=== PATIENT | male | born 1955 | race Caucasian/White ===

== ENCOUNTER → 2018-04-26 | Outpatient (CLI) | payer BC ==
[~2018-04-26] MED LIST: PRILOSEC 20 MG20 MG PO
--- NOTE | 2018-04-27 16:35 | CON ---
[address] [address] CONSULTATION Name: CHANELLE DOWLING Rebecca Room: [facility]#: [id number] Admission: 04/26/18 Attend Phys: Anand Dawkins Discharge: Date of : 53 Report #: [id number] THIS REPORT FOR: //name// CC: RANDELL WALKER DO Randell Walker DATE OF SERVICE: 04/26/2018 PULMONARY FUNCTION STUDY ATTENDING PHYSICIAN: Dr. Randell Walker. A 62-year-old male with dyspnea. Spirometry demonstrates mild obstructive defect. There is no significant improvement after bronchodilator response. Best spirometry shows an FEV1 of 3.45 with an FVC of 5.21, ratio 66%. FEV1 is 106% of predicted. Forced vital capacity is 120% of predicted. DPY80-03 is slightly decreased at 71% of predicted with some mild improvement. Lung volumes performed by plethysmography were within normal limits. Vital capacity is upper limits of normal 120% of predicted. Total lung capacity is normal at 88% of predicted. Diffusion is within normal limits at 90% of predicted. IMPRESSION: Abnormalities suggest mild obstructive defect with normal, DLCO and normal lung volumes. <ELECTRONICALLY SIGNED> By: Gideon Solano MD 04/27/18 1635 1433 1725Anthocecilio Llamas MD /elpidio
== END ==
LOC: M.PUL 10:17
DX: R06.00 Dyspnea, unspecified (principal); E66.3 Overweight; F17.210 Nicotine dependence, cigarettes, uncomplicated; Z98.890 Other specified postprocedural states; Z68.29 Body mass index [BMI] 29.0-29.9, adult; Z79.899 Other long term (current) drug therapy

== ENCOUNTER → 2018-05-17 | Outpatient (CLI) | payer BC ==
--- NOTE | 2018-05-17 16:30 | 2DMMODE ---
[place] [address] 2 D/M-MODE ECHOCARDIOGRAM Name: CHANELLE DOWLING Room: [facility]#: [id number] Admission: 05/17/18 Attend Phys: Chelsie Luna Discharge: Date of : 53 Date of Service: 05/17/18 1630 Report #: [id number] THIS REPORT FOR: //name// APPROVED REPORT Study performed: 05/17/2018 13:20:05 EXAM: Comprehensive 2D, Doppler, and color-flow Echocardiogram Patient Location: Out-Patient BSA: 1.92 HR: 63 bpm BP: 118/68 mmHg Other Information Study Quality: Good Indications Chest Pain 2D Dimensions IVSd: 9.10 (7-11mm) LVOT Diam: 20.76 (18-24mm) LVDd: 45.88 mm PWd: 9.98 (7-11mm) Ascending Ao: 30.87 (22-36mm) LVDs: 26.13 (25-40mm) Aortic Root: 27.81 mm Aortic Valve AoV Peak Abdon.: 1.52 m/s AO Peak Gr.: 9.19 mmHg LVOT Max P.57 mmHg LVOT Max V: 0.80 m/s AI [place]: 1.45 m/s2 AI PHT: 869.89 ms Mitral Valve E/A Ratio: 0.82 MV Decel. Time: 336.97 ms MV E Max Abdon.: 0.60 m/s MV PHT: 97.72 ms MVA (PHT): 2.25 cm2 TDI E/Lateral E': 6.67 E/Medial E': 8.57 Medial E' Abdon.: 0.07 m/s Lateral E' Abdon.: 0.09 m/[place] [address] 2 D/M-MODE ECHOCARDIOGRAM Name: CHANELLE DOWLING Room: [facility]#: [id number] Admission: 05/17/18 Attend Phys: Chelsie Luna Discharge: Date of : 53 Date of Service: 05/17/18 1630 Report #: [id number] Pulmonary Valve PV Peak Abdon.: 0.44 m/s PV Peak Gr.: 0.77 mmHg Tricuspid Valve RAP Estimate: 5.00 mmHg TR Peak Gr.: 15.04 mmHg RVSP: 20.04 mmHg PA Pressure: 20.04 mmHg Left Ventricle The left ventricle is normal size. There is normal LV segmental wall motion. There is normal left ventricular wall thickness. Left ventricular systolic function is mildly decreased. LVEF is 45%. Grade I - abnormal relaxation pattern. Right Ventricle Right ventricle is borderline dilated. The right ventricular systolic function is normal. Atria Left atrium is mildly dilated. Right atrium is mildly dilated. Aortic Valve Mild aortic valve sclerosis. Moderate aortic regurgitation. There is no aortic valvular stenosis. Mitral Valve The mitral valve is normal in structure. There is no mitral valve regurgitation noted. No evidence of mitral valve stenosis. Tricuspid Valve The tricuspid valve is normal in structure. Mild tricuspid regurgitation. Pulmonic Valve The pulmonary valve is normal in structure. There is no pulmonic valvular regurgitation. Great Vessels The aortic root is normal in size. IVC is normal in size and collapses >50% with inspiration. Pericardium There is no [place] [address] 2 D/M-MODE ECHOCARDIOGRAM Name: CHANELLE DOWLING Rebecca Room: [facility]#: [id number] Admission: 05/17/18 Attend Phys: Chelsie Luna Discharge: Date of : 53 Date of Service: 05/17/18 1630 Report #: [id number] <Conclusion> The left ventricle is normal size. There is normal left ventricular wall thickness. Left ventricular systolic function is mildly decreased. LVEF is 45%. Grade I - abnormal relaxation pattern. Right ventricle is borderline dilated. Left atrium is mildly dilated. Right atrium is mildly dilated. Mild aortic valve sclerosis. Moderate aortic regurgitation. There is no aortic valvular stenosis. The mitral valve is normal in structure. There is no mitral valve regurgitation noted. The tricuspid valve is normal in structure. Mild tricuspid regurgitation. IVC is normal in size and collapses >50% with inspiration. There is normal LV segmental wall motion. <ELECTRONICALLY SIGNED> By: Suleman Miller MD, FACC 05/17/18 1630 163 163 Suleman Miller MD, FACC /INF
== END ==
LOC: M.CRD 12:46
DX: I08.2 Rheumatic disorders of both aortic and tricuspid valves (principal)

== ENCOUNTER → 2018-09-01 | Outpatient (CLI) | payer OTHER | LOC: M.ULTRA 11:30 | DX: I65.23 Occlusion and stenosis of bilateral carotid arteries (principal) ==

== ENCOUNTER 2018-10-12 17:03 | Inpatient (IN) | payer OTHER ==
[~2018-10-12] VITALS: Ht 175.3 cm; Wt 80.3 kg
--- NOTE | ~2018-10-12 | CARD ---
[facility] [address] [place] [address] CARDIAC CATH REPORT Name: CHANELLE DOWLING Room: [address] IN .R.#: [id number] Admission: 10/12/18 Attend Phys: Tony Kendrick Discharge: Date of : 53 Report #: [id number] THIS REPORT FOR: //name// CC: Chelsie Sparks PROCEDURE: Inpatient transesophageal echocardiogram and cardioversion. REQUESTING PHYSICIAN: Blanka Taylor. INDICATION: Atrial fibrillation and CHF. CONSENT: The risks and benefits of the procedure described to the patient in lay terms. The patient elects to proceed. After informed consent, the patient was taken to the holding area and a conscious sedation was administered in the usual protocol. Local anesthesia with Hurricaine spray was utilized. A bite block was inserted. IV Versed and fentanyl were utilized for dosing for conscious sedation; please see record. Heart rate, oxygenation, blood pressure, respiratory rate and saturation were all monitored per nursing, per protocol. After the patient was adequately sedated, a lubricated transesophageal probe was advanced and images were obtained. There was no evidence of intracardiac thrombus and the patient was successfully cardioverted with 150 joules, biphasic from atrial flutter to sinus rhythm. IMPRESSION: 1. Successful TAHMINA-guided cardioversion. 2. Cardiomyopathy. Recommend outpatient cardiac stress testing or cardiac catheterization. By: [id number] [id number] Skinner MD, FACC /nt
[2018-10-12 17:11] VITALS: BP 130/83
[2018-10-12] MEDS ORDERED: OMEPRAZOLE40 MG PO (17:15)
[2018-10-12 17:18] LABS: ABSOLUTE EOSINOPHILS 0.1 thou/uL (0.0-0.7); ABSOLUTE LYMPHOCYTES 2.9 thou/uL (0.8-5.3); ABSOLUTE MONOCYTES 0.9 thou/uL (0.0-1.2); ABSOLUTE NEUTROPHILS 3.7 thou/uL (1.6-8.1); BASOPHILS 0.5 %; EOSINOPHILS 1.8 %; HEMOGLOBIN 16.6 gm/dL (14.0-18.0); LYMPHOCYTES 38.4 %; MCHC 33.9 g/dL (28.0-37.0); MCV 94.2 fL (80.0-100.0); MONOCYTES 11.6 %; MPV 7.4 fl. (7.2-11.1); NUCLEATED RBCS 0 /100WBC; PLATELET COUNT* 225 thou/uL (150-400); POLYS 47.7 %; RDW-CV 13.1 % (10.5-14.5); WBC 7.7 thou/uL (4.0-11.0)
[2018-10-12 17:30] LABS: ANION GAP 9 mmol/L (7-16); BUN 23 mg/dL (7-18); CALCIUM 9.5 mg/dL (8.5-10.1); CHLORIDE 108 mmol/L (98-107); CO2 25 mmol/L (21-32); CREATININE 1.1 mg/dL (0.6-1.3); GLUCOSE 101 mg/dL (70-99); POTASSIUM 4.4 mmol/L (3.5-5.1); SODIUM 142 mmol/L (136-145)
[2018-10-12 17:31] LABS: APTT 31.5 Seconds (25.0-31.3); PROTIME 9.9 Seconds (9.20-11.50)
[2018-10-12 17:43] LABS: ALBUMIN 4.1 g/dL (3.4-5.0); ALKALINE PHOSPHATASE 80 U/L (46-116); CK-MB MASS 2.1 ng/mL (<0.5-3.6); LIPASE 188 U/L (73-393); MAGNESIUM 2.4 mg/dL (1.8-2.4); NT-PRO BRAIN NAT PEPTIDE 1114 pg/mL (<300); SGOT 25 U/L (15-37); SGPT 41 U/L (30-65); TOTAL BILIRUBIN 0.8 mg/dL (<0.1-1.0); TOTAL PROTEIN 7.4 g/dL (6.4-8.2); TROPONIN-I LEVEL <0.06 ng/mL (<0.06)
--- NOTE | 2018-10-12 19:50 | NUR ---
OK TO DRINK AAND TAKE HIS PERSCRIPTION OF OMEPRAZOLE PER
[2018-10-12 20:00] VITALS: BP 132/64
[2018-10-12 20:23] VITALS: BP 115/73
[2018-10-12 20:32] LABS: CHOLESTEROL 105 mg/dL (<200); HDL CHOLESTEROL 52 mg/dL (>40); LDL CHOLESTEROL 46 mg/dL (<100); TRIGLYCERIDE 38 mg/dL (<150); VLDL 8 mg/dL (<40)
[2018-10-12 20:36] LABS: SERUM ASSESSMENT Clear
[2018-10-12 23:52] VITALS: BP 104/66
[2018-10-13] VITALS (14 sets, daily range): BP systolic 101–128; BP diastolic 61–85
--- NOTE | 2018-10-13 06:56 | NUR ---
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 PT C/O CHEST PAIN X1 THIS SHIFT. STATED PAIN HAD GONE AWAY ON IT'S OWN. EDUCATED PT ON IMPORTANCE OF LETTING NURSING KNOW IMMEDIATELY NEXT TIME. VVS. HOURLY ROUNDING COMPLETED. CALL LIGHT WITHIN REACH.NPO FOR CARDIOLOGY CONSULT.
--- NOTE | 2018-10-13 07:15 | NUR ---
ASSUMED CARE OF PT ASSESSED AND DOCUMENTED. PT IS ON CARDIAC MONITER TRACING AFLUTTER HR 63. PT IS A&O WITH NO C/O PAIN. VSS WNL. PT IS AFEBRILE AND ON ROOM AIR. HE IS NPO FOR CARDIO. WM.
--- NOTE | 2018-10-13 11:34 | EKG ---
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: : 1955 Requested By: Wm Lamar Order Number: [id number] MD: Jesse Skinner Measurements Intervals [place] Rate: 81 P: [place]: QRS: -53 QRSD: 150 T: 72 QT: 429 QTc: 498 Interpretive Statements Atrial flutter with predominant 3:1 AV block RBBB and LAFB Left ventricular hypertrophy Inferior infarct, acute Anterior Q waves, possibly due to LVH Compared to ECG 08/15/2016 10:39:46 AV block, advanced (high-grade) now present Left anterior fascicular block now present Left ventricular hypertrophy now present Myocardial infarct finding now present Q waves now present Sinus rhythm no longer present Electronically Signed On 6-6-2019 11:34:43 CDT by Jesse Skinner [email or web address] <ELECTRONICALLY SIGNED> By: Jesse Skinner MD, [facility] 10/13/18 1134 1707 1707 Jesse Skinner MD, [facility] /EPI
--- NOTE | 2018-10-13 11:35 | EKG ---
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 : 1955 Requested By: Wm Lamar Order Number: [id number] MD: Jesse Skinner Measurements Intervals [place] Rate: 68 P: [place]: QRS: -47 QRSD: 152 T: 31 QT: 442 QTc: 471 Interpretive Statements Atrial flutter RBBB and LAFB Left ventricular hypertrophy Compared to ECG 08/15/2016 10:39:46 Left anterior fascicular block now present Left ventricular hypertrophy now present Sinus rhythm no longer present Electronically Signed On 10-13-2018 11:34:55 CDT by Jesse Skinner [email or web address] <ELECTRONICALLY SIGNED> By: Jesse Skinner MD, FAC 10/13/18 1134 175 175 Jesse Skinner MD, FAC /EPI
--- NOTE | 2018-10-13 13:43 | NUR ---
Pt is A&O. Resides at home with his . Active and independent. No DME. No hx of HH or SNF. CM provided Pt with an [place] copay card. Goal is home at ut. Following for disposition
--- NOTE | 2018-10-13 13:44 | NUR ---
JOHN CALL ED FROM CARDIOLOGY PT CAN EAT BREAKFAST THEN NOTHING AFTER. NO CAFFIENE AND HOLD METOPROLOL.
--- NOTE | 2018-10-13 13:50 | TEE ---
[place] [address] TRANSESOPHAGEAL ECHOCARDIOGRAM Name: NITESHCHANELLE L Room: [address]#: [id number] Admission: 10/12/18 Attend Phys: Melanie Sparks Discharge: Date of : 53 Date of Service: 10/13/18 1349 Report #: [id number] THIS REPORT FOR: //name// APPROVED REPORT Study performed: 10/13/2018 12:15:27 EXAM: Transesophageal Echocardiogram Patient Location: In-Patient Room #: 219 Status: routine BSA: 1.96 HR: 74 bpm BP: 118/85 mmHg Rhythm: Atrial Flutter Other Information Study Quality: Good Indications Atrial flutter Pre Cardioversion Echo Enhancing Agent Indication: Rule out Shunt Agent(s) / Amount(s) Used: Agitated Saline 10 cc Procedure After obtaining informed consent, patient underwent transesophageal echo in the [employer]. Type of Sedation : Conscious Sedation Sedation was administered by Kody Liz RN. Sedation start time: 1224 Case end Time: 1237 Sedation was achieved intravenously with: Versed (5) Fentanyl (50) Transesophageal probe was inserted and advanced into esophagus without difficulty by Jesse Skinner MD, FACC. Echo enhancement indication: R/O Septal defect. Echo enhancement agent administered: Agitated Saline The TAHMINA was performed without complications. Synchronized Cardioversion acheived with 150 Joules after 1 attempt(s). Rhythm following Synchronized Cardioversion: Normal Sinus Rhythm Throughout the procedure, the blood pressure, pulse oximetry, cardiac rhythm, [place] [address] TRANSESOPHAGEAL ECHOCARDIOGRAM Name: CHANELLE DOWLING Room: [address]#: [id number] Admission: 10/12/18 Attend Phys: Melanie Sparks Discharge: Date of : 53 Date of Service: 10/13/18 1349 Report #: [id number] The patient tolerated the procedure without adverse effects. Recovery from conscious sedation was uneventful and vital signs were stable. Left Ventricle The left ventricle is normal size. There is normal LV segmental wall motion. There is global hypokinesis of the left ventricle. There is normal left ventricular wall thickness. Left ventricular systolic function is mildly decreased. No left ventricle thrombus noted on this study. LVEF is 40%. Right Ventricle The right ventricle is normal size. The right ventricular systolic function is normal. Atria No thrombus is visualized in the left atrium or appendage Interatrial septum is intact without evidence of ASD or PFO. The right atrium size is normal. Aortic Valve The aortic valve is normal in structure. Trace aortic regurgitation. There is no aortic valvular stenosis. Mitral Valve The mitral valve is normal in structure. Trace mitral regurgitation. No evidence of mitral valve stenosis. Tricuspid Valve Tricuspid valve is not well visualized. Trace tricuspid regurgitation. Pulmonic Valve Pulmonic valve is not well visualized. There is no pulmonic valvular regurgitation. Great Vessels The aortic root is normal in size. IVC is normal in size and collapses >50% with inspiration. Pericardium There is no pericardial effusion. <Conclusion> LVEF is 40%. There is normal [place] [address] TRANSESOPHAGEAL ECHOCARDIOGRAM Name: DOWLINGCHANELLE Room: [address] IN [facility]#: [id number] Admission: 10/12/18 Attend Phys: Melanie Sparks Discharge: Date of : 53 Date of Service: 10/13/181348 Report #: [id number] There is global hypokinesis of the left ventricle. There is no aortic valvular stenosis. Trace aortic regurgitation. No evidence of mitral valve stenosis. Trace mitral regurgitation. Interatrial septum is intact without evidence of ASD or PFO. No thrombus is visualized in the left atrium or appendage <ELECTRONICALLY SIGNED> By: Jesse Skinner MD, [facility] 10/13/18 1349 134 1349 Jesse Skinner MD, FACC /INF
--- NOTE | 2018-10-13 14:05 | EKG ---
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 10/13/18 1405 1305 1305 Elliott Yanes MD, [facility] /EPI
--- NOTE | 2018-10-13 17:24 | NUR ---
PT HAD CARDIOVERSION TODAY AND IS NOW SR. HE IS TO BE NPO AFTER BREAKDAST FOR STRESS TESTING. FAMILY HAS BEEN AT BEDSIDE. EDUCATION GIVEN ON DEMAND. HOURLY ROUNDING CONT.
[2018-10-14 04:00] VITALS: BP 101/47
--- NOTE | 2018-10-14 06:20 | NUR ---
AT 0345, PT C/O OF FEELING LIKE HE COULDN'T BREATHE. PT VSS, O2 SAT 98% ON RA. LUNGS CLEAR UPON AUSCULTATION. SR ON CARDIAC RHYTHM. PT PLACED ON 2L NC. STAT EKG, NO CHANGES OBSERVED. MORPHINE IVPUSH ADMINSITERED. PT VOICED RELIEF, NO OTHER COMPLAINTS OF SOA AT THIS TIME.
[2018-10-14 08:00] VITALS: BP 122/62
--- NOTE | 2018-10-14 09:02 | EKG ---
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 : 1955 Requested By: Jesse Skinner Order Number: [id number] Reading MD: Elliott Yanes Measurements Intervals [place] Rate: 50 P: 19 NE: 190 QRS: -40 QRSD: 158 T: -13 QT: 471 QTc: 430 Interpretive Statements Sinus bradycardia RBBB and LAFB Left ventricular hypertrophy Compared to ECG 10/13/2018 13:05:18 rate increased Electronically Signed On 10-14-2018 9:02:23 CDT by Elliott Yanes [email or web address] <ELECTRONICALLY SIGNED> By: Elliott Yanes MD, [facility] 10/14/18 0902 0426 0426 Elliott Yanes MD, [facility] /EPI
--- NOTE | 2018-10-14 11:53 | NUR ---
ASSUMED PT CARE AT 0730. AOX4, UP AD ADRIANNE. PT DENIES PAIN. PT FOR STRESS TEST. LIGHT BREAKFAST. TRACING SR, BBB ON MONITOR. ABDOMEN SOFT AND ROUND. LAST BM 10/12/18. IV ACCESS INTACT. VSS, AM ASSESSMENT CHARTED. MEDS GIVEN PER MAR. HOURLY ROUNDING. CALL LIGHT WITHIN REACH. WILL CONTINUE TO MONITOR.
[2018-10-14 12:44] VITALS: BP 113/72
[2018-10-14] MEDS ORDERED: ELIQUIS5 MG PO (15:41)
[2018-10-14] MEDS ORDERED: METOPROLOL SUCC25 M1 PO (15:41)
[2018-10-14] MEDS ORDERED: OMEPRAZOLE40 MG PO (15:42)
[2018-10-14] MEDS ORDERED: PRINIVIL5 MG PO (15:48)
[2018-10-14] MEDS ORDERED: LIPITOR40 MG PO (15:48)
[2018-10-14 15:49] VITALS: BP 113/72
--- NOTE | 2018-10-14 17:04 | NUR ---
DISCUSSED DISCHARGE PLAN WITH THE PT. TELE, IV REMOVED. MEDICATION SCRIPT/PACKET GIVEN. REMINDED TO FOLLOW UP WITH CARDIOLOGY,PCP. ALL BELONGINGS PACKED AND CHECKED. LEFT THE UNIT AMBULATORY AT 1640.
--- NOTE | 2018-10-17 10:16 | H ---
[address] [address] HISTORY AND PHYSICAL Name: NITESHCHANELLE Rebecca Room: [address]#: [id number] Admission: 10/12/18 Attend Phys: Tony Kendrick Discharge: 10/14/18 Date of : 53 Report #: [id number] THIS REPORT FOR: //name// CC: Chelsie Sparks DATE OF SERVICE: 10/12/2018 CHIEF COMPLAINT: Chest pain and shortness of breath. HISTORY OF PRESENT ILLNESS: The patient is a 63-year-old gentleman who does not have any medical problems except hiatal hernia, who presented to us here for recurrent chest pain and shortness of breath. The patient states that he has been short of breath and having chest pain for about 4-6 months now. He has a workup with his primary care physician and in fact had a stress test about 3 months ago, which he thought was negative. His symptoms have progressed for the last couple of weeks. He would have difficulty sleeping because of shortness of breath, developed chest pain when he was actually at rest. He is workaholic per says so sometimes does not really feel the pain until he is resting. He came into the Emergency Department today and was then admitted for further management. PAST MEDICAL HISTORY: Hiatal hernia. No history of hypertension, diabetes, or CAD. He does have history of VSD. PAST SURGICAL HISTORY: Status post surgery, VSD repair. FAMILY HISTORY: Mother having a VSD, but no CAD, no hypertension, no diabetes. SOCIAL HISTORY: The patient is and smokes 2-3 cigarettes per day intermittently. He has been smoking since he was 17, but on and off. He drinks alcohol, 1-5 beers and also had some mild alcohol on and off. No illicit drug use. HOME MEDICATIONS: Omeprazole 40 mg daily. REVIEW OF SYSTEMS: The patient denies any fever and chills. He does have a cough, which was described as on and off. He denies any nausea or vomiting. Does have a chest pain and shortness of breath as described. No diaphoresis, no jaw pain today. No nausea, vomiting, or abdominal pain. A 12-point review of systems is unremarkable as mentioned above. PHYSICAL EXAMINATION: VITAL SIGNS: Temperature is 36.6, heart rate 61, respiratory rate 16, blood pressure is 118/67, 96% on 2 liters nasal cannula. GENERAL: The patient is alert. He is oriented x 3, [place] [address] HISTORY AND PHYSICAL Name: CHANELLE DOWLING Room: [address]#: [id number] Admission: 10/12/18 Attend Phys: Tony Kendrick Discharge: 10/14/18 Date of : 53 Report #: [id number] distress. HEENT: Normocephalic, atraumatic. Nares patent. Clear pharynx. NECK: Supple. No lymphadenopathy. CARDIOVASCULAR: Normal rate, regular rhythm. No murmurs noted. RESPIRATORY: Clear to auscultation bilaterally. No wheeze, no crackles. GASTROINTESTINAL: Abdomen is soft, nontender, nondistended, good positive bowel sounds. No organomegaly. GENITOURINARY: Deferred. MUSCULOSKELETAL: Good strength. NEUROLOGIC: Grossly normal. PSYCHIATRIC: The patient is calm and cooperative. LABORATORY DATA: Reviewed and CBC is unremarkable. Chemistry showed chloride 108, BUN is 23, glucose is 101, otherwise unremarkable. Troponin has been negative. BNP is 1114. Coags unremarkable. D-dimer is 0.26. A CT has been done, which is negative. Chest that showed mild prominence to the heart size, no findings of acute pulmonary disease. EDG: Aflutter, rate controlled IMPRESSION: The patient is a 63-year-old gentleman presented to us here for: 1. Recurrent chest pain with negative outpatient workup. 2. Aflutter, rate controlled 3. Shortness of breath. 4. Known tobaccoism. 5. History of ventricular septal defect, status post repair. 6. Alcohol abuse. PLAN: The patient will be admitted. We will have Cardiology see him given that he already has a negative stress test, but his symptoms have been recurrent. Also noted to have aflutter. We will do an echo in the morning. We will keep him n.p.o. post-midnight. Discussed with the patient regarding code status and he is a full code. <ELECTRONICALLY SIGNED> By: Melanie Sparks MD 10/17/18 1016 14 0053Melanie Sparks MD /nt
--- NOTE | 2018-10-18 18:04 | CARDNUC ---
[place] [address] CARDIAC NUCLEAR IMAGING REPORT Name: NITESHCHANELLE Rebecca Room: [address]#: [id number] Admission: 10/12/18 Attend Phys: Melanie Sparks Discharge: 10/14/18 Date of : 53 Date of Service: 10/18/18 1804 Report #: [id number] THIS REPORT FOR: //name// ADDENDUM APPROVED REPORT Imaging Protocol: Rest Tc-99m/Stress Tc-99m 1 day Study performed: 10/13/2018 12:56:00 Indication: Chest pain, Dyspnea Patient Location: In-Patient Stress Tech: Wanda Mejia Stress Nurse: Nikki RN NM Tech:YOHANNES Shaw Ht: 5 ft 9 in Wt: 176 lbs BSA: 1.96 m2 BMI: 25.98 Medical History Medical History: VSD REPAIR, AORTIC STENOSIS, CARDIOVERSION EF 45 % Medications: APIXABAN, ATORVASTATIN, ASA 81, LISINOPRIL, METOPRILOL Allergies: NKDA Cardiac Risk Factors: AGE, TOBACCO, FAMILY HX Previous Cardiac Procedures: VSD REPAIR Exercise History: Physically active Meds Held (24 hrs): METOPROLOL Resting Data Rest SPECT myocardial perfusion imaging was performed in supine position 30 minutes following the intravenous injection of 11.5 mCi of Tc-99m Sestamibi. Time of rest injection: 11:55 The images were gated to evaluate regional wall motion and calculate left ventricular ejection fraction. Administration Route: IV Administration Site: Right Arm Pharmacologic Stress Pharmacologic stress test was performed by injecting Regadenoson 0.4 mg IV push over 10-15 seconds immediately followed by the intravenous injection of 34.0 mCi of Tc-99m Sestamibi. Time of stress injection: 13:30 Administration Route: IV Administration Site: [place] [address] CARDIAC NUCLEAR IMAGING REPORT Name: CHANELLE DOWLING Room: [address]#: [id number] Admission: 10/12/18 Attend Phys: Melanie Sparks Discharge: 10/14/18 Date of : 53 Date of Service: 10/18/18 1804 Report #: [id number] Heart Rate at time of stress injection: 100 bpm. Gated Stress SPECT was performed 60 minutes after stress injection. The images were gated to evaluate regional wall motion and calculate left ventricular ejection fraction. Prone imaging was performed. Stress Test Details Stress Test: Pharmacologic stress testing performed using 0.4 mg of regadenoson per 5 mL given IV over 10 seconds. Reason for pharmacologic stress test: LBBB. HR Max Heart Rate (APMHR): 156 bpm Resting HR: 62 bpm Target HR (85% APMHR): 132 bpm Max HR Achieved: 100 bpm % of APMHR: 64 Recovery HR: 83 bpm HR response to stress: Normal HR response to stress BP Resting BP: 119/69 mmHg Max BP: 148/92 mmHg Recovery BP: 165/92 mmHg BP response to stress: Normal blood pressure response to stress. ECG Resting ECG: nsr rbbb Stress ECG: same ST Change: none Arrhythmia: none Recovery ECG: nsr Recovery ST Change: none Recovery ST Deviation: none mm Recovery Arrhythmia: none Clinical Reason for Termination: Completed protocol Stress Symptoms: Nausea Stress ECG Conclusion nondiagnostic ecg Study Quality Study: Fair Artifact: Moderate Increased GI uptake Lung Uptake: [place] [address] CARDIAC NUCLEAR IMAGING REPORT Name: AUBURNRAGHAVCHANELLE L Room: [address]#: [id number] Admission: 10/12/18 Attend Phys: Melanie Sparks Discharge: 10/14/18 Date of : 53 Date of Service: 10/18/18 1804 Report #: [id number] Study Data At rest, the left ventricular ejection fraction was 59%.. Post stress, the left ventricular ejection was 68%.. SSS: 5 SRS: 6 SDS: -1 TID = 1.12. Perfusion STRESS SPECT images show a small mild intensity inferior defect which is noted to be fixed when compared to the SPECT rest images. There is uniform uptake of tracer in all other segments. The prone set shows normalization of the inferior defect indicating it is likely artifact. No reversible defects are seen. Images were reviewed using [employer]. Wall Motion normal all segments Nuclear Conclusion ECG Findings: non-diagnostic Clinical Findings: negative for ischemia Nuclear Findings: negative for ischemia Exercise Capacity: not assessed Left Ventricular Function: normal Risk Study: low Negative perfusion stress test for ischemia or infarct. The inferior defect is likely artifact. Normal EF. <Conclusion> nondiagnostic ecg <ELECTRONICALLY SIGNED> By: Sergio Lantigua MD, FACC 10/18/18 1804 03 180 Sergio Lantigua MD, FACC /INF
== END 2018-10-14 16:53 | disposition home or self-care (01) | DRG 309 ==
LOC: M.ERS 17:03 → M.TBA-ER 18:09 → M.2W 18:09
PROVIDERS: Family Medicine; ADMIT Internal Medicine
PROC: B24BZZ4 Ultrasonography of Heart with Aorta, Transesophageal (ICD-10-PCS; principal; 2018-10-13)
PROC: 5A2204Z Restoration of Cardiac Rhythm, Single (ICD-10-PCS; principal; 2018-10-13)
PROC: B24CZZ4 Ultrasonography of Pericardium, Transesophageal (ICD-10-PCS; principal; 2018-10-13)
DX: I48.92 Unspecified atrial flutter (principal); I50.22 Chronic systolic (congestive) heart failure; D68.59 Other primary thrombophilia; K21.9 Gastro-esophageal reflux disease without esophagitis; I42.9 Cardiomyopathy, unspecified; I48.91 Unspecified atrial fibrillation; F17.210 Nicotine dependence, cigarettes, uncomplicated; F10.10 Alcohol abuse, uncomplicated; I20.9 Angina pectoris, unspecified; I35.1 Nonrheumatic aortic (valve) insufficiency; K44.9 Diaphragmatic hernia without obstruction or gangrene; I45.10 Unspecified right bundle-branch block; I44.4 Left anterior fascicular block; J44.9 Chronic obstructive pulmonary disease, unspecified; G47.33 Obstructive sleep apnea (adult) (pediatric); Z79.899 Other long term (current) drug therapy; Z82.49 Family history of ischemic heart disease and other diseases of the circulatory system; Z87.74 Personal history of (corrected) congenital malformations of heart and circulatory system

== ENCOUNTER 2018-10-19 09:55 | Inpatient (IN) | payer OTHER ==
[~2018-10-19] VITALS: Ht 175.3 cm; Wt 78.9 kg
[~2018-10-19 09:55] MED LIST changes: +ELIQUIS5 MG PO; +LIPITOR40 MG PO; +METOPROLOL SUCC25 M1 PO; +OMEPRAZOLE40 MG PO; +PRINIVIL5 MG PO
[2018-10-19 10:06] VITALS: BP 111/76
[2018-10-19 10:33] LABS: ABSOLUTE EOSINOPHILS 0.1 thou/uL (0.0-0.7); ABSOLUTE LYMPHOCYTES 1.9 thou/uL (0.8-5.3); ABSOLUTE MONOCYTES 0.6 thou/uL (0.0-1.2); ABSOLUTE NEUTROPHILS 4.4 thou/uL (1.6-8.1); BASOPHILS 0.4 %; HEMATOCRIT 48.2 % (42.0-52.0); HEMOGLOBIN 16.2 gm/dL (14.0-18.0); LYMPHOCYTES 27.1 %; MCH 31.5 pg (26.0-34.0); MCHC 33.6 g/dL (28.0-37.0); MCV 93.7 fL (80.0-100.0); MONOCYTES 8.6 %; MPV 7.4 fl. (7.2-11.1); NUCLEATED RBCS 0 /100WBC; PLATELET COUNT* 212 thou/uL (150-400); POLYS 62.9 %; RBC 5.14 mil/uL (4.50-6.00); RDW-CV 13.1 % (10.5-14.5)
[2018-10-19 10:38] LABS: ANION GAP 11 mmol/L (7-16); BUN 20 mg/dL (7-18); CALCIUM 8.8 mg/dL (8.5-10.1); CHLORIDE 107 mmol/L (98-107); CO2 23 mmol/L (21-32); CREATININE 1.2 mg/dL (0.6-1.3); GLUCOSE 136 mg/dL (70-99); POTASSIUM 4.2 mmol/L (3.5-5.1); SODIUM 141 mmol/L (136-145)
[2018-10-19 10:50] LABS: ALBUMIN 3.9 g/dL (3.4-5.0); ALKALINE PHOSPHATASE 71 U/L (46-116); CK-MB MASS 1.4 ng/mL (<0.5-3.6); LIPASE 155 U/L (73-393); MAGNESIUM 2.1 mg/dL (1.8-2.4); NT-PRO BRAIN NAT PEPTIDE 532 pg/mL (<300); SGOT 18 U/L (15-37); SGPT 38 U/L (30-65); TOTAL BILIRUBIN 1.3 mg/dL (<0.1-1.0); TOTAL PROTEIN 7.2 g/dL (6.4-8.2); TROPONIN-I LEVEL <0.06 ng/mL (<0.06)
[2018-10-19 10:54] LABS: APTT 33.8 Seconds (25.0-31.3); PROTIME 10.4 Seconds (9.20-11.50)
[2018-10-19 14:43] VITALS: BP 104/73
[2018-10-19 14:48] VITALS: BP 116/72
--- NOTE | 2018-10-19 15:37 | NUR ---
PT ADMITTED TO ROOM 228 VIA CART FROM ED AT APPROXIMATELY 1455. REPORT RECEIVED FROM VASILE GIBSON. PT ORIENTED TO ROOM AND CALL LIGHT. FALL AGREEMENT SIGNED AND PLACED IN FRONT OF CHART. PT ADMITTED WITH CHEST PAIN AND AFIB. ADMISSION ASSESSMENT AND HISTORY COMPLETED. REFER TO CHARTING. PT SORAYA HOME MEDICATIONS ARE UP TO DATE BUT AWAITING TO BRING LIST UP TO HOSPITAL FOR VERIFICATION. PT A&0X4, DENIES ANY PAIN OR SHORTNESS OF BREATH AT THIS TIME. PT TRACING AFLUTTER ON THE DISPENSARY CLERK. RATE CONTROLLED IN THE 60'S-70'S. PT STARTED ON AMIODARONE LOADING. REFER TO EMAR. PT ON RA SAT 97%. PT UP AD ADRIANNE IN ROOM. SEPSIS SCREENING COMPLETED-PT SCREENED NEGATIVE. VSS. MEDICATIONS PER JUL. PT REPOSITIONS SELF. HOURLY ROUNDING OBSERVED. BED IN LOW POSITION. CALL LIGHT WITHIN REACH. WILL CONTINUE PLAN OF CARE.
--- NOTE | 2018-10-19 15:58 | EKG ---
[place] [address] ELECTROCARDIOGRAM REPORT Name: NITESHCHANELLE Fernandez Room: [address] ADM IN ..#: [id number] Admission: 10/19/18 Attend Phys: Sergio Lantigua MD Discharge: Date of : 53 Report #: [id number] THIS REPORT FOR: //name// [facility] ED Test Date: 2018-10-19 Test Time: 10:00:49 Pat Name: CHANELLE DOWLING Department: Room: [facility] Gender: M Speed Reading Teacher: : 1955 Requested By: Wm Lamar Order Number: [id number] MD: Suleman Miller Measurements Intervals [place] Rate: 97 P: -75 UT: 241 QRS: -56 QRSD: 151 T: 83 QT: 404 QTc: 513 Interpretive Statements Sinus or ectopic atrial rhythm Atrial premature complexes Prolonged UT interval RBBB and LAFB Left ventricular hypertrophy Compared to ECG 10/14/2018 04:26:38 Ectopic atrial rhythm now present Atrial premature complex(es) now present First degree AV block now present Sinus bradycardia no longer present Electronically Signed On 10-19-2018 15:58:12 CDT by Suleman Miller [email or web address] <ELECTRONICALLY SIGNED> By: Suleman Miller MD, [facility] 10/19/18 1558 1000 1000 Suleman Miller MD, [facility] /EPI
[2018-10-19 20:45] VITALS: BP 106/74
[2018-10-20] VITALS: BP 108/62
--- NOTE | 2018-10-20 03:19 | NUR ---
PATIENT COMPLAINING OF "PRESSURES" AROUND SHOULDERS, REPORTS NUMBNESS TO ARMS. REPORTS HEADACHE AND JAW PAIN THAT DOES NOT RESOLVE WITH REPOSITIONING. DENIES NAUSEA, DIAPHORESIS, CHEST PAIN, ABDOMINAL PAIN. EKG AND TROPONIN ORDERED. WILL CONSULT PHYSICIAN FOR WORSENING SYMPTOMS/LAB RESULTS.
[2018-10-20 04:00] VITALS: BP 113/65
--- NOTE | 2018-10-20 06:48 | NUR ---
PATIENT BRADYCARDIC THROUGH THE NIGHT, LOWEST 31 BPM. DOES NOT SUSTAIN, COMES BACK UP TO 40s-50s WITHIN A FEW SECONDS. PATIENT REPORTS PRESSURE AND JAW PAIN IMPROVED THIS AM. NO CHANGE IN TROPONIN AND EKG. DENIES PAIN. OTHERWISE UNEVENTFUL NIGHT. CALL LIGHT WITHIN REACH.
[2018-10-20 08:00] VITALS: BP 97/58
--- NOTE | 2018-10-20 09:22 | NUR ---
ASSUMED CARE OF PT AT 0730. PT RESTING IN BED. PT A&0X4, COMPLAINS OF GENERALIZED PAIN AND DISCOMFORT. TREATED WITH PRN TYLENOL WITH PARTIAL RELIEF. PT STATES HE DID NOT SLEEP WELL AND HAS BEEN HAVING EPISODES OF DIZZINESS. BLOOD PRESSURE SOFT THIS AM 90'S/50'S. PT TRACING AFLUTTER ON THE RADIO BOARD OPERATOR ANNOUNCER. RATE IN THE 50'S. AM BLOOD PRESSURE MEDICATIONS HELD AT THIS TIME-WILL CONTINUE TO MONITOR CLOSELY. PT ON RA SAT UPPER 90'S. DENIES ANY SHORTNESS OF BREATH. PT UP SBA TO BATHROOM DUE TO DIZZINESS. PT GOAL FOR TODAY IS PAIN MGMT, MAINTAIN HEART RATE ABOVE 60, CONVERT TO SINUS RHYTHM AND CARDIO CONSULT IN PLACE. AM ASSESSMENT CHARTED. MEDICATIONS PER JUL. PT REPOSITIONS SELF. HOURLY ROUNDING OBSERVED. BED IN LOW POSITION. CALL LIGHT WITHIN REACH. WILL CONTINUE PLAN OF CARE.
--- NOTE | 2018-10-20 12:01 | NUR ---
MET WITH PT TO DISCUSS HOME SITUATION/DC PLANNING. PT KNOWN TO CM, LIVES WITH . IS INDEPENDENT AND ACTIVE. DENIES NEEDS
[2018-10-20 12:09] VITALS: BP 104/60
[2018-10-20 16:26] VITALS: BP 118/50
--- NOTE | 2018-10-20 16:36 | NUR ---
NO ACUTE CHANGES THROUGHOUT SHIFT. REFER TO CHARTING. PT STATES HE IS FEELING BETTER THROUGHOUT SHIFT. CARDIOLOGY CONSULT IN PLACE. ORDERS RECEIVED FOR TAHMINA/CV TOMORROW 10/21. PT NPO AFTER MIDNIGHT. MEDICATION ADJUSTMENTS MADE-REFER TO EMAR. PT CONTINUES TO TRACE AFLUTTER ON THE CASH APPLICATIONS REPRESENTATIVE- RATE IN THE 50'S-60'S. PT DENIES ANY DIZZINESS THIS AFTERNOON. PT ON RA SAT UPPER 90'S. PT UP AD ADRIANNE IN ROOM. PT NOT PROGRESSING TOWARDS GOALS. MEDICATIONS PER JUL. PT REPOSITIONS SELF. HOURLY ROUNDING OBSERVED. BED IN LOW POSITION. CALL LIGHT WITHIN REACH. WILL CONTINUE PLAN OF CARE.
--- NOTE | 2018-10-20 17:15 | EKG ---
[place] [address] ELECTROCARDIOGRAM REPORT Name: CHANELLE DOWLING Room: [address] ADM IN R.#: [id number] Admission: 10/19/18 Attend Phys: Sergio Lantigua MD Discharge: Date of : 53 Report #: [id number] THIS REPORT FOR: //name// [facility] Test Date: 2018-10-20 Test Time: 02:46:52 Pat Name: CHANELLE DOWLING Department: Room: [facility] Gender: M Fisher Purse Seine: MMOHAMMED9 : 1955 Requested By: Blanka Taylor Order Number: [id number] Reading MD: Sergio Lantigua Measurements Intervals [place] Rate: 58 P: [place]: QRS: -53 QRSD: 159 T: 21 QT: 565 QTc: 556 Interpretive Statements Atrial flutter with predominant 4:1 AV block RBBB and LAFB Left ventricular hypertrophy Compared to ECG 10/19/2018 10:00:49 AV block, advanced (high-grade) now present Ectopic atrial rhythm no longer present Atrial premature complex(es) no longer present First degree AV block no longer present Electronically Signed On 10-20-2018 17:15:19 CDT by Sergio Lantigua [email or web address] <ELECTRONICALLY SIGNED> By: Sergio Lantigua MD, [facility] 10/20/18 1715 5 5 Sergio Lantigua MD, [facility] /EPI
[2018-10-20 20:00] VITALS: BP 121/67
[2018-10-21] VITALS (9 sets, daily range): BP systolic 102–132; BP diastolic 56–78
--- NOTE | 2018-10-21 06:16 | NUR ---
ASSUMED PATIENT CARE AT 1900. PATIENT ALERT AND ORIENTED TIMES FOUR. PATIENT COMPLAINED OF ARM, HANDS AND FEET TINGLING. STATED "MY TASTE AND FEEL LIKE CHALKY AND NO TASTE ANYMORE" MOST OF THE SAME COMPLAINTS THE PATIENT HAD THE NIGHT BEFORE. VITALS REMAINED STABLE THROUGH THE NIGHT. NO COMPLAINTS OF PAIN. CALIBRATION TECHNICIAN AND HOURLY ROUNDING COMPLETED CHARTED
--- NOTE | 2018-10-21 09:00 | NUR ---
ASSUMED CARE OF PT AT 0730. PT RESTING IN BED. PT A&0X4, DENIES ANY PAIN OR SHORTNESS OF BREATH AT THIS TIME. PT NPO FOR CARDIOVERSION TODAY. CONSENT SIGNED AND PLACED IN FRONT OF CHART. PT TRACING AFLUTTER ON THE FACILITIES OFFICER. ON RA SAT UPPER 90'S. PT UP AD ADRIANNE IN ROOM. PT GOAL FOR TODAY IS CARDIOVERSION AND REMAIN IN SINUS RHYTHM. AM ASSESSMENT CHARTED. MEDICATIONS PER JUL. PT REPOSITIONS SELF. HOURLY ROUNDING OBSERVED. BED IN LOW POSITION. CALL LIGHT WITHIN REACH. WILL CONTINUE PLAN OF CARE.
--- NOTE | 2018-10-21 14:35 | EKG ---
[place] [address] ELECTROCARDIOGRAM REPORT Name: DOWLINGCHANELLE Room: [address] ADM IN R.#: [id number] Admission: 10/19/18 Attend Phys: Sergio Lantigua MD Discharge: Date of : 53 Report #: [id number] THIS REPORT FOR: //name// [facility] Test Date: 2018-10-21 Test Time: 08:38:43 Pat Name: CHANELLE DOWLING Department: Room: [facility] Gender: M Specimen Accessioner: : 1955 Requested By: Blanka Taylor Order Number: [id number] Reading MD: Elliott Yanes Measurements Intervals [place] Rate: 58 P: -69 AR: 211 QRS: -55 QRSD: 158 T: 19 QT: 656 QTc: 645 Interpretive Statements atrial flutter RBBB and LAFB Left ventricular hypertrophy Compared to ECG 10/20/2018 02:46:52 no change Electronically Signed On 10-21-2018 14:35:31 CDT by Elliott Yanes [email or web address] <ELECTRONICALLY SIGNED> By: Elliott Yanes MD, [facility] 10/21/18 1435 0838 0838 Elliott Yanes MD, [facility] /EPI
--- NOTE | 2018-10-21 17:58 | NUR ---
NO ACUTE CHANGES THROUGHOUT SHIFT. REFER TO CHARTING. PT CONTINUES TO TRACE SR WITH BBB ON THE OXYGEN SYSTEM TESTER. PT DENIES ANY PAIN OR SHORTNESS OF BREATH, STATES HE FEELS BETTER THIS AFTERNOON THAN HE HAS IN A FEW DAYS. MEDICATION CHANGES MADE PER CARDIOLOGY. AMIODARONE DISCONTINUED. REFER TO EMAR. PT ON RA SAT UPPER 90'S. DENIES ANY PAIN THIS AFTERNOON. PT UP AD ADRIANNE IN ROOM. PT SLOWLY PROGRESSING TOWARDS GOALS. MEDICATIONS PER MAR. PT REPOSITIONS SELF. HOURLY ROUNDING OBSERVED. BED IN LOW POSITION. CALL LIGHT WITHIN REACH. WILL CONTINUE PLAN OF CARE.
--- NOTE | 2018-10-22 00:45 | NUR ---
ASSUMED PATIENT CARE AT 1900. PATIENT ALERT AND ORIENTED TIMES FOUR. SPOUSE AT BEDSIDE. NO COMPLAINTS OF PAIN OR DISCOMFORT AT THIS TIME. CONTINUES TO BE NSR ON THE MONITOR. WILL CONTINUE TO MONITOR
[2018-10-22 02:16] VITALS: BP 130/71
--- NOTE | 2018-10-22 02:17 | NUR ---
PATIENT COMPLAINED OF LEFT SIDED TINGLING. NIH PERFORMED AND VITAL SIGNS OBTAINED. ALL WERE WNL. BLOOD GLUCOSE 91. PATIENT EXPRESSED THAT "I HAVE NOT HAD A WINK OF SLEEP IN OVER A WEEK" EDUCATION COMPLETED ON THE NECCESITY OF SLEEP AND THAT LACK OF COULD CAUSE ODD THINGS TO BE HAPPENING. PATIENT ALSO EXPRESSED THAT THIS ONLY HAPPENS WHEN HE FINALLY STARTS TO DOZE OFF. EXPRESSED TO PATIENT THAT RN WOULD PASS ALONG TO DAY NURSE.
--- NOTE | 2018-10-22 06:35 | NUR ---
PATIENT RESTED THROUGH THE NIGHT. HOURLY ROUNDING COMPLETED CHARTED
[2018-10-22 09:49] VITALS: BP 117/61
--- NOTE | 2018-10-22 10:00 | NUR ---
ASSUMED CARE APPROX 0730, A&OX4, ABLE TO COMMUNICATE NEEDS TO STAFF. LAMP SHADE SEWER IN PLACE, SR BBB. O2 SATS 95% RA. UP AD ADRIANNE IN ROOM. CALL LIGHT IN REACH.
[2018-10-22 12:16] VITALS: BP 113/62
[2018-10-22 15:40] VITALS: BP 112/54
[2018-10-22 19:45] VITALS: BP 116/68
[2018-10-22 22:00] VITALS: BP 130/72
[2018-10-23] VITALS: BP 119/52
[2018-10-23 04:00] VITALS: BP 121/56
--- NOTE | 2018-10-23 06:20 | NUR ---
PATIENT PARTIALLY PROGRESSING TOWARDS GOALS: HS FLECAINIDE HELD DUE TO LOW HR IN 40-50'S. PATIENT C/O DIZZINESS UPON AMBULATION. BLOOD PRESSURE WNL. PATIENT ENCOURAGED TO CALL FOR ASSISTANCE WHEN AMBULATING. PATIENT DENIES PAIN AND DISCOMFORT. CALL LIGHT WITHIN REACH
[2018-10-23 08:40] VITALS: BP 109/57
--- NOTE | 2018-10-23 09:05 | NUR ---
ASSUMED CARE APPROX 0730, A&OX4, ABLE TO COMMUNICATE NEEDS TO STAFF. SO JORDI AT PATIENT'S SIDE. SET UP AND CHARGER IN PLACE, SB BBB, 53. O2 SAT 96% RA. WITHOUT ANY PAIN, N/V, OR DIZZINESS. ASKS FOR MED FOR GAS, STATES "I DIDN'T GET MY MEDICINE FOR ACID, GERD, I GUESS." PANTOPRAZOLE CHARTED GIVEN THIS AM PER EMAR. PATIENT DENIES GASTRIC UPSET WHEN OFFERED MYLANTA. CALL LIGHT IN REACH. HOURLY ROUNDING FOR SAFETY AND PT NEEDS.
[2018-10-23 13:32] VITALS: BP 117/63
[2018-10-23 19:33] VITALS: BP 142/68
[2018-10-23 20:15] VITALS: BP 125/53
[2018-10-24 00:02] VITALS: BP 133/63
[2018-10-24 03:13] VITALS: BP 127/62
--- NOTE | 2018-10-24 05:51 | NUR ---
PT IS ABLE TO COMMUNICATE HIS NEEDS TO STAFF EFFECTIVELY. HE HAS DENIED THE NEED FOR PAIN MEDICATION UP TO THIS TIME. PT HAS REPORTED FEELING DIZZY AND "JUST NOT RIGHT" OVER NIGHT; WILL INFORM CARDIOLOGY THE PT THINKS IT MAY BE THE FLECANIDE. VSS DURING THIS SHIFT, UP TO THIS TIME.
[2018-10-24 08:00] VITALS: BP 114/70
[2018-10-24 11:05] VITALS: BP 114/70
[2018-10-24] MEDS ORDERED: FLECAINIDE ACET50 M1 PO (11:14)
--- NOTE | 2018-10-24 11:21 | NUR ---
ASSUMED CARE OF PT AT 0730. PT RESTING IN BED WAITING FOR BREAKFAST. PT A&0X4, DENIES ANY PAIN OR SHORTNESS OF BREATH AT THIS TIME. PT STATES HE HAD A BAD NIGHT WITH CHEST PAIN, ARM NUMBNESS AND DIZZINESS. PT STATES HE FEELS OK AT THE MOMENT. PT TRACING SB WITH BBB ON THE INFORMATION SECURITY CONSULTANT. ON RA SAT UPPER 90'S. PT UP AD ADRIANNE IN ROOM. PT GOAL FOR TODAY IS REMAIN FREE FROM CHEST PAIN AND DIZZINESS, HAVE A BOWEL MOVEMENT AND DISCHARGE PLANNING TO HOME. AM ASSESSMENT CHARTED. MEDICATIONS PER JUL. MILK OF MAG GIVEN PER PT REQUEST FOR CONSTIPATION. PT REPOSITIONS SELF. HOURLY ROUNDING OBSERVED. BED IN LOW POSITION. CALL LIGHT WITHIN REACH. WILL CONTINUE PLAN OF CARE.
--- NOTE | 2018-10-24 11:40 | NUR ---
SW met with pt to discuss dc plans for today. Pt to dc home with . SW discussed possible HH but pt declines this need; pt nurse agreed HH would not be necessary, there also weren't any HH orders, just the dc summary noted home with HH. Pt declined any dc needs and is looking forward to dc today.
--- NOTE | 2018-10-24 12:57 | NUR ---
DISCHARGE ORDERS RECEIVED. DISCHARGE INSTRUCTIONS, CARE NOTES, SCRIPTS AND FOLLOW UP APPTS GIVEN TO PT. PT COMMUNICATES UNDERSTANDING OF DISCHARGE TEACHING. IV AND WIND FIELD MANAGER REMOVED. PT DISCHARGED WITH ALL BELONGINGS AND PAPERWORK VIA WHEELCHAIR WITH [employer] TO FRIENDS OWN PERSONAL VEHICLE.
--- NOTE | 2018-10-24 13:48 | EKG ---
[place] [address] ELECTROCARDIOGRAM REPORT Name: RAGHAV DOWLINGAZALIA Fernandez Room: [address] IN [facility]#: [id number] Admission: 10/19/18 Attend Phys: Sergio Lantigua MD Discharge: 10/24/18 Date of : 53 Report #: [id number] THIS REPORT FOR: //name// [facility] Test Date: 2018-10-22 Test Time: 10:17:22 Pat Name: CHANELLE DOWLING Department: Room: [facility] Gender: M Business Continuity Specialist: DEEPTI : 1955 Requested By: Blanka Taylor Order Number: [id number] Reading MD: Elliott Yanes Measurements Intervals [place] Rate: 55 P: 41 SC: 195 QRS: -50 QRSD: 164 T: 34 QT: 485 QTc: 464 Interpretive Statements Sinus rhythm RBBB and LAFB Left ventricular hypertrophy Compared to ECG 10/21/2018 08:38:43 Atrial flutter no longer present Electronically Signed On 10-24-2018 13:47:56 CDT by Elliott Yanes [email or web address] <ELECTRONICALLY SIGNED> By: Elliott Yanes MD, [facility] 10/24/18 1347 1017 1017 Elliott Yanes MD, [facility] /EPI
--- NOTE | 2018-10-24 13:57 | EKG ---
[place] [address] ELECTROCARDIOGRAM REPORT Name: RAGHAV DOWLINGAZALIA Fernandez Room: [address] DIS IN .R.#: [id number] Admission: 10/19/18 Attend Phys: Sergio Lantigua MD Discharge: 10/24/18 Date of : 53 Report #: [id number] THIS REPORT FOR: //name// [facility] Test Date: 2018-10-23 Test Time: 04:22:19 Pat Name: CHANELLE DOWLING Department: Room: [address] Gender: M Welder Pipe Making: CANDY : 1955 Requested By: Dave Metzger Order Number: [id number] Reading MD: Elliott Yanes Measurements Intervals [place] Rate: 53 P: 141 RI: 194 QRS: -30 QRSD: 169 T: 147 QT: 496 QTc: 466 Interpretive Statements Sinus bradycardia IVCD, consider atypical RBBB Repol abnrm suggests ischemia, lateral leads Lead(s) II were not used for morphology analysis Electronically Signed On 10-24-2018 13:57:09 CDT by Elliott Yanes [email or web address] <ELECTRONICALLY SIGNED> By: Elliott Yanes MD, [facility] 10/24/18 1357 0422 0422 Elliott Yanes MD, [facility] /EPI
--- NOTE | 2018-10-24 14:00 | EKG ---
[place] [address] ELECTROCARDIOGRAM REPORT Name: RAGHAV DOWLINGAZALIA Fernandez Room: [address] DIS IN .R.#: [id number] Admission: 10/19/18 Attend Phys: Sergio Lantigua MD Discharge: 10/24/18 Date of : 53 Report #: [id number] THIS REPORT FOR: //name// [facility] Test Date: 2018-10-23 Test Time: 06:33:17 Pat Name: CHANELLE DOWLING Department: Room: [address] Gender: M Appeals Officer: CANDY : 1955 Requested By: Dave Metzger Order Number: [id number] Arleen MD: Elliott Yanes Measurements Intervals [place] Rate: 53 P: 42 MD: 181 QRS: -62 QRSD: 170 T: 27 QT: 515 QTc: 484 Interpretive Statements Sinus rhythm Nonspecific IVCD with LAD Left ventricular hypertrophy Electronically Signed On 10-24-2018 13:59:54 CDT by Elliott Yanes [email or web address] <ELECTRONICALLY SIGNED> By: Elliott Yanes MD, [facility] 10/24/18 1359 2 2 Elliott Yanes MD, [facility] /EPI
--- NOTE | 2018-10-24 16:50 | EKG ---
[place] [address] ELECTROCARDIOGRAM REPORT Name: CHANELLE DOWLING Room: [address] IN [facility].#: [id number] Admission: 10/19/18 Attend Phys: Sergio aLntigua MD Discharge: 10/24/18 Date of : 53 Report #: [id number] THIS REPORT FOR: //name// [facility] Test Date: 2018-10-24 Test Time: 02:53:45 Pat Name: CHANELLE DOWLING Department: Room: [address] Gender: M Meat Grader: CKLOTZ : 1955 Requested By: Dave Metzger Order Number: [id number] Arleen MD: Elliott Yanes Measurements Intervals [place] Rate: 56 P: 33 CO: 180 QRS: -52 QRSD: 170 T: 50 QT: 504 QTc: 487 Interpretive Statements Sinus rhythm RBBB and LAFB Left ventricular hypertrophy Electronically Signed On 10-24-2018 16:50:07 CDT by Elliott Yanes [email or web address] <ELECTRONICALLY SIGNED> By: Elliott Yanes MD, [facility] 10/24/18 1650 0253 025 Elliott Yanes MD, [facility] /EPI
== END 2018-10-24 13:02 | disposition home or self-care (01) | DRG 309 ==
LOC: M.ERS 09:55 → M.TBA-ER 10:47 → M.2W 10:47
PROVIDERS: Family Medicine; ADMIT Internal Medicine Cardiovascular Disease
PROC: 5A2204Z Restoration of Cardiac Rhythm, Single (ICD-10-PCS; principal; 2018-10-21)
DX: I48.92 Unspecified atrial flutter (principal); D68.69 Other thrombophilia; I42.9 Cardiomyopathy, unspecified; K21.9 Gastro-esophageal reflux disease without esophagitis; I48.91 Unspecified atrial fibrillation; Z79.899 Other long term (current) drug therapy

== ENCOUNTER → 2018-12-30 | Outpatient (CLI) | payer OTHER ==
[~2018-12-30] MED LIST changes: +FLECAINIDE ACET50 M1 PO
[2018-12-30 13:07] LABS: HEMATOCRIT 44.3 % (42.0-52.0); HEMOGLOBIN 15.2 gm/dL (14.0-18.0); MCH 32.4 pg (26.0-34.0); MCHC 34.3 g/dL (28.0-37.0); MCV 94.5 fL (80.0-100.0); MPV 6.8 fl. (7.2-11.1); RBC 4.69 mil/uL (4.50-6.00); RDW-CV 13.4 % (10.5-14.5); WBC 6.3 thou/uL (4.0-11.0)
[2018-12-30 13:22] LABS: ALBUMIN 4.2 g/dL (3.4-5.0); CALCIUM 8.8 mg/dL (8.5-10.1); CREATININE 1.2 mg/dL (0.6-1.3); POTASSIUM 4.3 mmol/L (3.5-5.1); TOTAL BILIRUBIN 1.2 mg/dL (<0.1-1.0); TOTAL PROTEIN 7.2 g/dL (6.4-8.2)
== END ==
LOC: M.LAB 12:35 → M.CT 14:00
PROVIDERS: Internal Medicine Cardiovascular Disease
DX: K76.0 Fatty (change of) liver, not elsewhere classified (principal); I51.7 Cardiomegaly; I48.91 Unspecified atrial fibrillation

== ENCOUNTER 2019-04-26 17:39 | Emergency (ER) | payer OTHER ==
[~2019-04-26] VITALS: Ht 175.3 cm; Wt 81.7 kg
[~2019-04-26 17:39] MED LIST changes: +AMIODARONE HCL100 MG PO; +AUGMENTIN 875-1 EACH PO; +TOPROL XL25 MG PO
[2019-04-26 18:04] LABS: ABSOLUTE EOSINOPHILS 0.1 thou/uL (0.0-0.7); ABSOLUTE LYMPHOCYTES 2.4 thou/uL (0.8-5.3); ABSOLUTE NEUTROPHILS 3.2 thou/uL (1.6-8.1); BASOPHILS 0.6 %; EOSINOPHILS 1.7 %; HEMATOCRIT 41.9 % (42.0-52.0); HEMOGLOBIN 14.5 gm/dL (14.0-18.0); LYMPHOCYTES 35.6 %; MCH 31.3 pg (26.0-34.0); MCHC 34.6 g/dL (28.0-37.0); MCV 90.3 fL (80.0-100.0); MONOCYTES 14.3 %; MPV 6.9 fl. (7.2-11.1); NUCLEATED RBCS 0 /100WBC; PLATELET COUNT* 212 thou/uL (150-400); POLYS 47.8 %; RBC 4.64 mil/uL (4.50-6.00); RDW-CV 13.5 % (10.5-14.5); WBC 6.8 thou/uL (4.0-11.0)
[2019-04-26 18:15] LABS: CALCIUM 9.6 mg/dL (8.5-10.1); CREATININE 1.3 mg/dL (0.6-1.3)
[2019-04-26 18:18] LABS: PROTIME 10.6 Seconds (9.20-11.50)
[2019-04-26 18:28] LABS: ALBUMIN 3.9 g/dL (3.4-5.0); CK-MB MASS 0.8 ng/mL (<0.5-3.6); MAGNESIUM 2.2 mg/dL (1.8-2.4); TOTAL PROTEIN 7.3 g/dL (6.4-8.2)
[2019-04-26 19:20] VITALS: BP 148/80
--- NOTE | 2019-04-27 12:49 | EKG ---
[place] [address] ELECTROCARDIOGRAM REPORT Name: CHANELLE DOWLING ANA CRISTINA [id number] Admission: 04/26/19 Attend Phys: Discharge: 04/26/19 Date of : 53 Report #: [id number] THIS REPORT FOR: //name// [facility] ED Test Date: 2019-04-26 Test Time: 17:43:29 Pat Name: CHANELLE DOWLING Department: Room: Gender: M Warpman: : 1955 Requested By: Tutu Finley Order Number: [id number] MD: Suleman Miller Measurements Intervals [place] Rate: 53 P: [place]: QRS: -49 QRSD: 162 T: 33 QT: 532 QTc: 500 Interpretive Statements Sinus rhythm RBBB and LAFB Left ventricular hypertrophy Compared to ECG 10/24/2018 02:53:45 no significant change Electronically Signed On 04-27-2019 12:49:20 DIRECTOR PERIOPERATIVE by Suleman Miller [email or web address] <ELECTRONICALLY SIGNED> By: Suleman Miller MD, [facility] 04/27/19 1249 1743 174 Suleman Miller MD, [facility] /EPI
== END 2019-04-26 19:21 | disposition home or self-care (01) ==
LOC: M.ERS 17:39
PROVIDERS: Emergency Medicine
DX: R07.89 Other chest pain (principal); K21.9 Gastro-esophageal reflux disease without esophagitis; Z87.891 Personal history of nicotine dependence

== ENCOUNTER → 2019-05-01 | Day surgery (SDC) | payer OTHER ==
[~2019-05-01] MED LIST changes: +OXYCODONE HCL 55 MG PO
--- NOTE | ~2019-05-01 | OP ---
[address] [address] OPERATIVE REPORT Name: CHANELLE DOWLING [facility] Room: [facility]#: [id number] Admission: 05/01/19 Attend Phys: J Carlos Calhoun DO Discharge: Date of : 53 Report #: [id number] THIS REPORT FOR: //name// CC: J Carlos Luna DO DATE OF SERVICE: 05/01/2019 Antonieta Carballo DO, PGY2 dictating for J Carlos Calhoun DO. PREOPERATIVE DIAGNOSIS: Left inguinal hernia. POSTOPERATIVE DIAGNOSIS: Left inguinal hernia. PROCEDURE PERFORMED: Da Evon assisted laparoscopic left inguinal hernia repair with mesh. PRIMARY SURGEON: J Carlos Calhoun DO. HEEL BREASTER: Antonieta Carballo DO, PGY2. SECOND TURNING MACHINE OPERATOR: BABATUNDE Rubin. ESTIMATED BLOOD LOSS: 20 mL. FINDINGS: Left inguinal hernia. COMPLICATIONS: None. SPECIMEN: Cord lipoma. Implant large left Bard 3DMax mesh. INDICATIONS FOR PROCEDURE: The patient is a 63-year-old gentleman that presented to our office with complaint of left groin pain. He states he noticed a bulge in his left groin nearly a year ago. He began having some discomfort in the left groin that has gotten progressively worse. On exam, he was found to have a left inguinal hernia. He also had a CT scan that showed a moderate sized fat containing left inguinal hernia. It was recommended that he undergo repair of his hernia. The procedure, risks, benefits, possible complications to include bleeding, infection, hernia recurrence, need for open procedure, injury to surrounding structures, damage to the testicle or testicular function, anesthesia risks, and other risks of surgery were discussed with the patient in great detail. He voiced complete understanding and wished to proceed with surgery. DESCRIPTION OF PROCEDURE: Informed consent was obtained. [place] [address] OPERATIVE REPORT Name: CHANELLE DOWLING [id number] Admission: 05/01/19 Attend Phys: J Carlos Calhoun DO Discharge: Date of : 53 Report #: [id number] to the operating room and placed supine on the operating room table. Preoperative antibiotics were given. SCDs were placed on bilateral lower extremities. General endotracheal anesthesia was induced without difficulty. A tap block was performed. The patient's arms were tucked to the side with all pressure points padded. Abdomen was prepped and draped in the standard sterile fashion. Timeout was performed to ensure correct patient and procedure. We began by making a vertical supraumbilical incision using a #11 blade scalpel. Incision was carried down to the subcutaneous tissue using electrocautery until we reached the level of the fascia. Fascia was scored with electrocautery. The fascia was then grasped with 2 Kochers and elevated. Peritoneum was entered bluntly using a hemostat. 0 Vicryl stay sutures were placed on either side of the fascial opening. A da Evon camera trocar was inserted through our fascial opening. Abdomen was insufflated without difficulty to 50. Camera was inserted and a sweep of the anterior abdominal contents was performed. The patient did have some adhesions from his sigmoid colon to the abdominal wall in the left groin. No obvious hernia on the right. No other obvious abnormalities noted on the initial sweep of the abdominal contents. Right upper quadrant, 12 mm trocar was inserted under direct visualization. Left upper quadrant 8.5 mm da Evon trocar was inserted under direct visualization. Camera was removed and the robot was advanced to the bedside arms were docked. Camera was inserted. A fenestrated bipolar was inserted into the left arm, monopolar scissors were inserted into the right arm. I then broke scrub and went on console, began by taking down the adhesions overlying the left groin gently using electrocautery. Once this was done, the bedside delinquent tax collector assistant identified the left ASIS and marked this intra-abdominally using electrocautery. It did appear to have an obvious left inguinal hernia. Again, no hernia noted on the right. We began by opening up the peritoneum at the left medial umbilical ligament. A combination of blunt dissection and electrocautery were used to dissect a peritoneal flap. We initially dissected inferiorly until we were able to identify the pubic bone as well as Greg's ligament. The dissection was carried laterally. Hernia sac was completely reduced. A small to moderate sized cord lipoma was also reduced and excised and set aside to be removed later. Once the hernia was completely reduced we continued our dissection laterally in order to make a space large enough to accommodate a large left Bard 3DMax mesh. Once this was done, the bedside delinquent tax collector assistant removed the monopolar scissors and inserted a large left Bard 3DMax mesh through the 12 mm trocar as well as a 2-0 Vicryl suture and a 2-0 V-Loc suture. Bedside delinquent tax collector assistant then inserted a suture cut needle locomotive driver. The mesh was then rolled and laid into place. A 2-0 Vicryl suture was used to secure the mesh in place medially at Greg's ligament. We placed two additional anchoring sutures, one medial to the epigastric vessels and one lateral to the epigastric vessels. Once this was done, the peritoneal flap was then closed over our mesh using 2-0 V-Loc suture. Once this was completed, the bedside Licensing Director then undocked the right arm and removed the two needles. Bedside delinquent tax collector assistant also then used a grasper to remove the previously excised cord lipoma. The right upper quadrant 12 mm trocar was then removed under direct visualization. This was then closed using a PMI closure device. The left upper [address] [address] OPERATIVE REPORT Name: CHANELLE DOWLING LINK [facility] [id number] Admission: 05/01/19 Attend Phys: J Carlos Calhoun DO Discharge: Date of : 53 Report #: [id number] quadrant 8.5 mm trocar was removed under direct visualization. Abdomen was desufflated. Camera and camera trocar were removed. The fascial opening at the supraumbilical incision was closed using 0 Vicryl suture in a [id number] fashion. Subcutaneous tissue was closed using 3-0 Vicryl suture in a simple interrupted in inverted fashion. The skin was closed using 4-0 Monocryl suture in a running subcuticular fashion. The left and right upper quadrant trocar sites were closed using 4-0 Monocryl suture in a simple interrupted and inverted fashion. Abdomen was cleansed and dried. Sterile dressings were applied using Mastisol, Steri-Strips, and Tegaderms. The patient tolerated the procedure very well. He was allowed to awaken in the operating room and was then transferred to the PACU in stable condition with plans to discharge home later today. By: 1310 1454Antonieta Carballo DO /elpidio
[2019-05-01 08:57] LABS: HEMATOCRIT 45.2 % (42.0-52.0); HEMOGLOBIN 15.6 gm/dL (14.0-18.0); MCH 31.4 pg (26.0-34.0); MCHC 34.6 g/dL (28.0-37.0); MCV 90.9 fL (80.0-100.0); MPV 6.7 fl. (7.2-11.1); RBC 4.97 mil/uL (4.50-6.00); RDW-CV 13.5 % (10.5-14.5); WBC 6.9 thou/uL (4.0-11.0)
--- NOTE | 2019-05-01 09:13 | EKG ---
[place] [address] ELECTROCARDIOGRAM REPORT Name: CHANELLE DOWLING Room: [facility]#: [id number] Admission: 05/01/19 Attend Phys: J Carlos Calhoun DO Discharge: Date of : 53 Report #: [id number] THIS REPORT FOR: //name// [facility] Test Date: 2019-05-01 Test Time: 08:50:57 Pat Name: CHANELLE DOWLING Department: Room: Gender: M Quality Control Checker: : 1955 Requested By: J Carlos Calhoun Order Number: [id number] Reading MD: Elliott Yanes Measurements Intervals [place] Rate: 63 P: 40 SC: 230 QRS: -55 QRSD: 159 T: 64 QT: 487 QTc: 499 Interpretive Statements Sinus rhythm Prolonged SC interval RBBB and LAFB Left ventricular hypertrophy Compared to ECG 04/26/2019 17:43:29 rate increased Electronically Signed On 05-01-2019 9:12:57 ROUGHER FOR CEMENT by Elliott Yanes [email or web address] <ELECTRONICALLY SIGNED> By: Elliott Yanes MD, [facility] 05/01/1912 0850 0850 Elliott Yanes MD, [facility] /EPI
[2019-05-01 09:17] LABS: CALCIUM 8.9 mg/dL (8.5-10.1); CREATININE 1.2 mg/dL (0.6-1.3); POTASSIUM 4.3 mmol/L (3.5-5.1)
[2019-05-01 09:22] LABS: TOTAL BILIRUBIN 1.1 mg/dL (<0.1-1.0); TOTAL PROTEIN 7.6 g/dL (6.4-8.2)
== END | disposition home or self-care (01) ==
LOC: M.SUR 06:35
PROVIDERS: Surgery
DX: K40.90 Unilateral inguinal hernia, without obstruction or gangrene, not specified as recurrent (principal); D17.6 Benign lipomatous neoplasm of spermatic cord; I48.91 Unspecified atrial fibrillation; I48.92 Unspecified atrial flutter; I42.9 Cardiomyopathy, unspecified; F17.210 Nicotine dependence, cigarettes, uncomplicated; Z98.890 Other specified postprocedural states; Z79.01 Long term (current) use of anticoagulants; Z79.891 Long term (current) use of opiate analgesic; Z79.899 Other long term (current) drug therapy

== ENCOUNTER 2019-05-02 03:55 | Inpatient (IN) | payer OTHER ==
[~2019-05-02] VITALS: Ht 175.3 cm; Wt 83.4 kg
[2019-05-02 04:05] VITALS: BP 93/57
[2019-05-02 04:37] LABS: ABSOLUTE LYMPHOCYTES 1.2 thou/uL (0.8-5.3); ABSOLUTE MONOCYTES 0.8 thou/uL (0.0-1.2); ABSOLUTE NEUTROPHILS 10.4 thou/uL (1.6-8.1); BASOPHILS 0.1 %; HEMATOCRIT 37.7 % (42.0-52.0); LYMPHOCYTES 9.4 %; MCH 31.4 pg (26.0-34.0); MCHC 34.3 g/dL (28.0-37.0); MCV 91.5 fL (80.0-100.0); MONOCYTES 6.6 %; MPV 7.1 fl. (7.2-11.1); NUCLEATED RBCS 0 /100WBC; PLATELET COUNT* 285 thou/uL (150-400); POLYS 83.9 %; RBC 4.12 mil/uL (4.50-6.00); RDW-CV 13.6 % (10.5-14.5); WBC 12.4 thou/uL (4.0-11.0)
[2019-05-02 04:40] LABS: HEMOGLOBIN 12.9 gm/dL (14.0-18.0)
[2019-05-02 04:43] LABS: PROTIME 10.3 Seconds (9.20-11.50)
[2019-05-02 04:45] LABS: CALCIUM 9.2 mg/dL (8.5-10.1); CREATININE 2.1 mg/dL (0.6-1.3); POTASSIUM 5.3 mmol/L (3.5-5.1)
[2019-05-02 04:55] LABS: ALBUMIN 3.7 g/dL (3.4-5.0); TOTAL BILIRUBIN 0.8 mg/dL (<0.1-1.0); TOTAL PROTEIN 7.2 g/dL (6.4-8.2)
[2019-05-02 07:27] LABS: URINE BILIRUBIN NEGATIVE (Negative); URINE BLOOD NEGATIVE (Negative); URINE CLARITY CLEAR; URINE COLOR YELLOW; URINE GLUCOSE-RANDOM NEGATIVE (Negative); URINE KETONES TRACE (Negative); URINE LEUKOCYTES-REFLEX NEGATIVE (Negative); URINE NITRITE-REFLEX NEGATIVE (Negative); URINE PROTEIN NEGATIVE (Negative); URINE SPECIFIC GRAVITY 1.015 (1.005-1.030); URINE UROBILINOGEN 0.2 E.U./dl (0.2-1.0)
--- NOTE | 2019-05-02 07:36 | NUR ---
SURGERY PHYSICIAN AT BEDSIDE TO SEE PATIENT
[2019-05-02 08:20] VITALS: BP 107/59
[2019-05-02 09:00] VITALS: BP 124/62
--- NOTE | 2019-05-02 09:10 | NUR ---
REC'D REPORT FROM ED RN, PATIENT ARRIVED AT 0850 VIA GURNEY. A&OX4, ABLE TO COMMUNICATE NEEDS TO STAFF. REPORTS PAIN PER NUMERIC PAIN SCALE. ASSESSMENT COMPLETE. VS OBTAINED, WNL. FILTER BED PLACER IN PLACE, AFIB, BBB. SURGERY TEAM TO BEDSIDE TO ASSESS/EDUCATE. ANSWERED PATIENT QUESTIONS TO HIS SATISFACTION. ORIENTED PATIENT TO ROOM, CALL LIGHT. HOURLY ROUNDING FOR SAFETY/NEEDS.
--- NOTE | 2019-05-02 09:48 | EKG ---
[place] [address] ELECTROCARDIOGRAM REPORT Name: CHANELLE DOWLING ANA CRISTINA Room: [address] ADM IN .R.#: [id number] Admission: 05/02/19 Attend Phys: J Carlos Calhoun DO Discharge: Date of : 53 Report #: [id number] THIS REPORT FOR: //name// [facility] ED Test Date: 2019-05-02 Test Time: 04:38:19 Pat Name: CHANELLE DOWLING Department: Room: [facility] Gender: M Press Tender Short Goods: SHANTI : 1955 Requested By: Hortencia Keating Order Number: [id number] MD: Elliott Yanes Measurements Intervals [place] Rate: 78 P: -45 MS: 175 QRS: -63 QRSD: 153 T: 72 QT: 425 QTc: 485 Interpretive Statements Sinus or ectopic atrial rhythm Right bundle branch block LVH with IVCD and secondary repol abnrm Borderline prolonged QT interval Baseline wander in lead(s) I,III,aVR,aVL Compared to ECG 05/01/2019 08:50:57 no change Electronically Signed On 05-02-2019 9:47:40 FUNDRAISING SPECIALIST by Elliott Yanes [email or web address] <ELECTRONICALLY SIGNED> By: Elliott Yanes MD, FACC 05/02/19 0947 0438 0438 Elliott Yanes MD, FACC /EPI
--- NOTE | 2019-05-02 13:40 | NUR ---
Nutrition: Consult was recevied for "wt 175#, suggested is 160#." RN unavailable. Pt is at a healthy BMI of 25.8. Recent inguinal hernia surgery. Albumin 3.7. No BM yet, but +flatus. Heart Healthy diet ordered. Pt appears at low nutrition risk as long as he is eating and drinking well.
[2019-05-02 14:10] LABS: HEMATOCRIT 28.2 % (42.0-52.0)
[2019-05-02 14:15] LABS: HEMOGLOBIN 9.7 gm/dL (14.0-18.0)
[2019-05-02 15:06] VITALS: BP 107/55
[2019-05-02 20:00] VITALS: BP 108/63; BP 149/97
[2019-05-03] VITALS (7 sets, daily range): BP systolic 105–140; BP diastolic 43–90
--- NOTE | 2019-05-03 01:56 | NUR ---
PT ALERT ORIENTED. UP AD ADRIANNE IN ROOM. ABD WITH SURGICAL DRSG, TENDER, FIRM, DISTENDED. BS ACTIVE. PAIN MED GIVEN ONCE. TELEMETRY SHOWS AFIB. ON RA. VOIDS PER BR. PT LAST BM ON 05/01. PT STATED HE FEELS HE NEEDS TO HAVE ONE. COLACE AND MIRILAX GIVEN PRIOR TO SHIFT CHG. WCTM
[2019-05-03 03:16] LABS: HEMOGLOBIN 9.5 gm/dL (14.0-18.0)
--- NOTE | 2019-05-03 05:33 | NUR ---
APPROX 0300 PT'S CAME TO NURSES STATION STATING HER WAS HAVING SEVERE ABD PAIN AND PRESSURE. DR MIGUEL NOTIFIED AND CAME INTO SEE PT. PT HAD BRUSING AROUND PENIS AND SCROTUM. ABD DID NOT LOOK MORE DISTENDED THAN IT HAD. BP 140/[address] MIGUEL ORDERED HGB 9.5 LAST ONE 9.7. ALSO EXTRA DOSE OF MORPHINE GIVEN. BLADDER SCAN SHOWED 455MLS. MELO PLACED WITH APPROX 800MLS CLEAR YELLOW RETURN. PT STATED HE FEELS MUCH BETTER.
--- NOTE | 2019-05-03 06:37 | NUR ---
PT REQUESTED A SUPPOSITORY. GIVEN WAITING FOR RESULTS.
[2019-05-03 08:17] LABS: HEMATOCRIT 28.1 % (42.0-52.0); HEMOGLOBIN 9.8 gm/dL (14.0-18.0); MCHC 34.7 g/dL (28.0-37.0); MCV 92.2 fL (80.0-100.0); MPV 6.9 fl. (7.2-11.1); RBC 3.05 mil/uL (4.50-6.00); RDW-CV 13.5 % (10.5-14.5); WBC 11.4 thou/uL (4.0-11.0)
[2019-05-03 08:22] LABS: ALBUMIN 3.4 g/dL (3.4-5.0); CALCIUM 8.5 mg/dL (8.5-10.1); CREATININE 1.2 mg/dL (0.6-1.3); PHOSPHORUS* 2.2 mg/dL (2.5-4.9); POTASSIUM 4.3 mmol/L (3.5-5.1); TOTAL BILIRUBIN 0.5 mg/dL (<0.1-1.0); TOTAL PROTEIN 6.4 g/dL (6.4-8.2)
--- NOTE | 2019-05-03 18:26 | NUR ---
PT VSS, ZIAUTTER ON TELE, A&OX4, ROOM AIR, UP AD ADRIANNE, PATIENT POST HERNIA REPAIR, MELO CATHETER FOR RETENTION. THREE SMALL SURGICAL INCISIONS ON ABD STERI STRIP DRESSINGS. HOURLY ROUNDING PERFORMED, POSSESSIONS AND CALL LIGHT WITHIN REACH. SPOUSE AT BEDSIDE.
[2019-05-04] VITALS: BP 124/63
[2019-05-04 04:00] VITALS: BP 119/55
[2019-05-04 07:01] LABS: HEMATOCRIT 26.7 % (42.0-52.0); HEMOGLOBIN 9.2 gm/dL (14.0-18.0); MCH 31.8 pg (26.0-34.0); MCHC 34.6 g/dL (28.0-37.0); MPV 7.6 fl. (7.2-11.1); RBC 2.9 mil/uL (4.50-6.00); RDW-CV 13.9 % (10.5-14.5); WBC 7.2 thou/uL (4.0-11.0)
[2019-05-04 07:06] LABS: CALCIUM 8.8 mg/dL (8.5-10.1); CREATININE 1.1 mg/dL (0.6-1.3); POTASSIUM 4.2 mmol/L (3.5-5.1)
[2019-05-04 11:26] VITALS: BP 114/61
--- NOTE | 2019-05-04 13:43 | NUR ---
Pt is A&O. Resides at home with his . Active and independent, no DME. No hx of HH or SNF. Goal is home at dc, possible dc to home tomorrow.
--- NOTE | 2019-05-04 14:08 | EKG ---
[place] [address] ELECTROCARDIOGRAM REPORT Name: CHANELLE DOWLING ANA CRISTINA Room: [address] ADM IN M.R.#: [id number] Admission: 05/02/19 Attend Phys: J Carlos Calhoun DO Discharge: Date of : 53 Report #: [id number] THIS REPORT FOR: //name// [facility] Test Date: 2019-05-03 Test Time: 21:52:02 Pat Name: CHANELLE DOWLING Department: Room: [address] Gender: M Tube Mounter: THOWARD3 : 1955 Requested By: Franklyn Sinclair Order Number: [id number] Arleen MD: Elliott Yanes Measurements Intervals [place] Rate: 68 P: AR: QRS: -8 QRSD: 155 T: 246 QT: 462 QTc: 492 Interpretive Statements atrial fibrillation RBBB Left ventricular hypertrophy Inferior infarct, age indeterminate Baseline wander in lead(s) V2 Compared to ECG 05/02/2019 04:38:19 atrial fibrillation now present Myocardial infarct finding now present Electronically Signed On 05-04-2019 14:08:12 REAL ESTATE UTILIZATION OFFICER by Elliott Yanes [email or web address] <ELECTRONICALLY SIGNED> By: Elliott Yanes MD, FACC 05/04/19 1408 51 51 Elliott Yanes MD, [facility] /EPI
[2019-05-04 16:17] VITALS: BP 107/64
--- NOTE | 2019-05-04 18:39 | NUR ---
ASSUMED PT CARE AT 0730, FULL ASSESMENT DONE CHARTED. PT A/O X4, C/O SOME BACK PAIN, DID STATE THAT THE CHEST PAIN HE HAD DURING THE NIGHT HAD GONE AWAY AND THAT IT WAS AFTER HE PASSED GAS. PT HAD NOT HAD A BM SINCE THE . NEW MEDS ORDERED TODAY AND HE HAD LARGE BM. PT PROVIDED WITH IS, EDUCATED ON IMPORTANCE OF AMBULATING TODAY. PT WAS RELUCTANT TO WALK IN [place] BUT DID THIS EVENING. PTS ABD INCISION SITES APPROPRIATE, SMALL AMOUNT OF DRIED BLOOD REMIANS ON DRESSINGS. PTS SCROTUM AND PENIS ARE STILL RED AND SLIGHTLY SWOLLEN. MELO REMAINS IN PLACE, D/D, YELLOW URINE. WILL CONTINUE WITH PLAN OF CARE
[2019-05-04 20:00] VITALS: BP 132/68
[2019-05-05] VITALS: BP 105/62
[2019-05-05 04:00] VITALS: BP 135/64
[2019-05-05 08:11] VITALS: BP 139/76
[2019-05-05 10:30] VITALS: BP 139/76
--- NOTE | 2019-05-05 10:36 | NUR ---
VSS, ASSUMED CARE IN THE AM, ASSESSMENT PERFORMED AND CHARTED, FALL PRECAUTIONS IN PLACE AND CALL LIGHT IN REACH, PT IS A&O4 AND UP AD ADRIANNE. ON RA AND IS TRACING SR ON THE MONITOR, PT DENIES ANY PPAIN THIS AM, HE HAS MELO IN PLACE AND IS DRAING, HE HAS BEEN DISCHARGED AT THIS TIME, PT DENIES ANY QUESTIONS AT TIME OF D/C, PT IS TO D/C WITH MELO, DISCHARGE PAPERS AND EDU ON POST HOSPITAL CARE PROVITED,
--- NOTE | 2019-05-05 13:46 | EKG ---
[place] [address] ELECTROCARDIOGRAM REPORT Name: CHANELLE ODWLING [facility] Room: [address] DIS IN M.R.#: [id number] Admission: 05/02/19 Attend Phys: J Carlos Calhoun DO Discharge: 05/05/19 Date of : 53 Report #: [id number] THIS REPORT FOR: //name// [facility] Test Date: 2019-05-05 Test Time: 08:52:04 Pat Name: CHANELLE DOWLING Department: Room: [address] Gender: M Final Inspector Motorcyles: : 1955 Requested By: Elliott Yanes Order Number: [id number] Arleen MD: Sergio Lantigua Measurements Intervals [place] Rate: 71 P: -14 MT: 180 QRS: -56 QRSD: 157 T: 57 QT: 468 QTc: 509 Interpretive Statements Sinus rhythm RBBB and LAFB Left ventricular hypertrophy Compared to ECG 05/03/2019 21:52:02 Left anterior fascicular block now present Atrial fibrillation no longer present Myocardial infarct finding no longer present Electronically Signed On 05-05-2019 13:46:25 MANAGER OF INFORMATION by Sergio Lantigua [email or web address] <ELECTRONICALLY SIGNED> By: Sergio Lantigua MD, FACC 05/05/19 1346 0852 0852 Sergio Lantigua MD, FAC /EPI
--- NOTE | 2019-05-05 13:56 | CON ---
[address] [address] CONSULTATION Name: CHANELLE DOWLING [facility] Room: [address] IN Tony.Danielito.#: [id number] Admission: 05/02/19 Attend Phys: J Carlos Calhoun DO Discharge: 05/05/19 Date of : 53 Report #: [id number] THIS REPORT FOR: //name// CC: J Carlos Luna DO DATE OF SERVICE: 05/04/2019 CARDIOLOGY CONSULTATION HISTORY OF PRESENT ILLNESS: The patient is a 63-year-old white male who I was asked to see in the hospital today after he complained of chest pain. The patient has an extensive and complicated past medical history. He apparently was noted to have a heart murmur for years. He eventually underwent open repair of a VSD at the [facility] in [place] years ago. This past year, he developed atrial fibrillation and was seen by Dr. Sergio Lantigua here at [facility] and was cardioverted. He initially was placed on flecainide. However, he had recurrent atrial flutter and eventually in January underwent an ablation at [facility] by Dr. Coffman. He apparently was placed on amiodarone and Eliquis after the ablation. He apparently recently saw Dr. Coffman who discontinued the amiodarone. Because of the low blood pressure, he was taken off the metoprolol by his primary care physician. Recently, he complained of a hernia. He was admitted to [facility] 4 days ago and underwent hernia repair, was kept overnight. He was then discharged 2 days ago. He had been off Eliquis for 5 days. However, he developed abdominal distention and then came back to the hospital several hours later and was admitted. He apparently did not require a repeat surgery. He had no vomiting. Yesterday, he complained of a pressure in his chest and abdomen. Cardiology consultation was requested. Denied any shortness of breath or diaphoresis. I was asked to see him for further evaluation and treatment. He denies exertional dyspnea, recurrent palpitations, syncope, bleeding on the Eliquis. PAST MEDICAL HISTORY: He has had testicle removal. He has no history of diabetes. MEDICATIONS: He is currently not on any medications. ALLERGIES: He has no known drug allergies. FAMILY HISTORY: His mother had a hole in her heart. SOCIAL HISTORY: He is , lives with his in [place]. Quit smoking in October. No alcohol abuse. REVIEW OF SYSTEMS: He has no history of stroke, asthma, peptic ulcer disease, [place] [address] CONSULTATION Name: HCANELLE DOWLING [facility] Room: [address] IN Tony.Dafne#: [id number] Admission: 05/02/19 Attend Phys: J Carlos Calhoun, DO Discharge: 05/05/19 Date of : 53 Report #: [id number] liver disease. He has had a kidney stone and hiatal hernia. No cancer. No psychiatric illness. No chronic skin condition. PHYSICAL EXAMINATION: GENERAL: Revealed an elderly male. VITAL SIGNS: Blood pressure 120/60, pulse is 60. He is afebrile. HEENT: He was anicteric. Conjunctivae pink. Mucous membranes moist. NECK: Veins are nondistended. CHEST: Clear to auscultation. HEART: Regular rate and rhythm, grade 2 systolic ejection murmur. ABDOMEN: Soft, mildly tender. EXTREMITIES: Had no edema. Dorsalis pedis pulse 1+. SKIN: Cool and dry. NEUROLOGIC: Nonfocal. LABORATORY DATA: His ECG done yesterday showed a sinus rhythm, left anterior fascicular block and a right bundle-branch block. No acute ST or T-wave change. His workup, he actually had a nuclear stress test done last October that showed small inferior defect, suggesting artifact. No reversible defects were seen. His ejection fraction was 68%. He had echocardiogram done a year ago that showed ejection fraction lower limits of normal, biatrial enlargement, aortic sclerosis. He had an echocardiogram done in October of this year before his ablation that showed no thrombus, no shunt. His chest x-ray showed normal heart size, clear lung adrian. LABORATORY DATA: Sodium 143, creatinine 1.1. His troponins all 0.06. In October, his cholesterol was 105, triglycerides 38, HDL 52, LDL 46. White blood cell count 7.2, hemoglobin 9.2. IMPRESSION AND RECOMMENDATIONS: 1. Chest pressure. Suspect related to recent surgery. No acute myocardial infarction. Negative stress test last year. 2. History of atrial flutter following previous ablation. I would resume Eliquis when it is okay from the surgery standpoint. 3. Recent repair of a hernia. 4. Previous tobacco abuse. <ELECTRONICALLY SIGNED> By: Elliott Yanes MD, FACC 05/05/19 1356 0843 0907Davitaylor Yanes MD, FACC /nt
== END 2019-05-05 11:25 | disposition home or self-care (01) | DRG 919 ==
LOC: M.ERS 03:55 → M.2W 07:51 → M.TBA-ER 07:51 → M.2W 08:45
PROVIDERS: Emergency Medicine; ADMIT Surgery
DX: K91.870 Postprocedural hematoma of a digestive system organ or structure following a digestive system procedure (principal); K66.1 Hemoperitoneum; N17.9 Acute kidney failure, unspecified; K21.9 Gastro-esophageal reflux disease without esophagitis; R33.9 Retention of urine, unspecified; I48.91 Unspecified atrial fibrillation; F41.9 Anxiety disorder, unspecified; Z79.899 Other long term (current) drug therapy; Z79.891 Long term (current) use of opiate analgesic; Z87.891 Personal history of nicotine dependence; Z86.79 Personal history of other diseases of the circulatory system; Z83.6 Family history of other diseases of the respiratory system; Z72.89 Other problems related to lifestyle

== ENCOUNTER 2019-05-13 07:13 | Emergency (ER) | payer OTHER ==
[~2019-05-13] VITALS: Ht 175.3 cm; Wt 79.4 kg
[2019-05-13 08:27] LABS: ABSOLUTE EOSINOPHILS 0.2 thou/uL (0.0-0.7); ABSOLUTE LYMPHOCYTES 1.3 thou/uL (0.8-5.3); ABSOLUTE MONOCYTES 0.7 thou/uL (0.0-1.2); ABSOLUTE NEUTROPHILS 4.2 thou/uL (1.6-8.1); BASOPHILS 0.6 %; EOSINOPHILS 2.6 %; HEMATOCRIT 28.4 % (42.0-52.0); HEMOGLOBIN 9.9 gm/dL (14.0-18.0); LYMPHOCYTES 20.1 %; MCH 31.7 pg (26.0-34.0); MCV 90.5 fL (80.0-100.0); MONOCYTES 10.8 %; MPV 6.3 fl. (7.2-11.1); NUCLEATED RBCS 0 /100WBC; PLATELET COUNT* 343 thou/uL (150-400); POLYS 65.9 %; RBC 3.13 mil/uL (4.50-6.00); RDW-CV 13.7 % (10.5-14.5); WBC 6.4 thou/uL (4.0-11.0)
[2019-05-13 08:38] LABS: CALCIUM 8.5 mg/dL (8.5-10.1); CREATININE 1.2 mg/dL (0.6-1.3)
[2019-05-13 08:45] LABS: ALBUMIN 3.1 g/dL (3.4-5.0); TOTAL BILIRUBIN 1.4 mg/dL (<0.1-1.0); TOTAL PROTEIN 6.8 g/dL (6.4-8.2)
[2019-05-13 09:37] LABS: URINE BILIRUBIN NEGATIVE (Negative); URINE BLOOD TRACE (Negative); URINE CLARITY CLEAR; URINE COLOR YELLOW; URINE GLUCOSE-RANDOM NEGATIVE (Negative); URINE KETONES NEGATIVE (Negative); URINE LEUKOCYTES-REFLEX NEGATIVE (Negative); URINE NITRITE-REFLEX NEGATIVE (Negative); URINE PROTEIN NEGATIVE (Negative); URINE UROBILINOGEN 0.2 E.U./dl (0.2-1.0)
[2019-05-13 10:22] VITALS: BP 127/72
== END 2019-05-13 10:23 | disposition home or self-care (01) ==
LOC: M.ERS 07:13
PROVIDERS: Family Medicine
DX: N13.9 Obstructive and reflux uropathy, unspecified (principal); L76.32 Postprocedural hematoma of skin and subcutaneous tissue following other procedure; K21.9 Gastro-esophageal reflux disease without esophagitis; Z87.891 Personal history of nicotine dependence

== ENCOUNTER → 2019-06-28 | Outpatient (CLI) | payer OTHER | LOC: M.CT 11:30 | DX: J98.11 Atelectasis (principal); I51.7 Cardiomegaly; R79.89 Other specified abnormal findings of blood chemistry ==

== ENCOUNTER 2019-11-15 15:57 | Emergency (ER) | payer OTHER ==
[~2019-11-15] VITALS: Ht 175.3 cm; Wt 78.0 kg
[2019-11-15 16:23] LABS: ABSOLUTE LYMPHOCYTES 2.3 thou/uL (0.8-5.3); ABSOLUTE MONOCYTES 0.6 thou/uL (0.0-1.2); ABSOLUTE NEUTROPHILS 3.3 thou/uL (1.6-8.1); BASOPHILS 0.7 %; EOSINOPHILS 0.8 %; HEMATOCRIT 43.5 % (42.0-52.0); HEMOGLOBIN 15.2 gm/dL (14.0-18.0); LYMPHOCYTES 36.3 %; MCH 32.3 pg (26.0-34.0); MCV 92.2 fL (80.0-100.0); MONOCYTES 10.3 %; MPV 7.2 fl. (7.2-11.1); NUCLEATED RBCS 0 /100WBC; PLATELET COUNT* 228 thou/uL (150-400); POLYS 51.9 %; RBC 4.72 mil/uL (4.50-6.00); RDW-CV 14.4 % (10.5-14.5); WBC 6.3 thou/uL (4.0-11.0)
[2019-11-15 16:33] LABS: CALCIUM 9.2 mg/dL (8.5-10.1); CREATININE 1.3 mg/dL (0.6-1.3); POTASSIUM 4.1 mmol/L (3.5-5.1)
[2019-11-15 16:45] LABS: ALBUMIN 4.1 g/dL (3.4-5.0); TOTAL BILIRUBIN 0.8 mg/dL (<0.1-1.0); TOTAL PROTEIN 7.6 g/dL (6.4-8.2)
[2019-11-15 17:29] VITALS: BP 120/71
--- NOTE | 2019-11-16 12:41 | EKG ---
[place] [address] ELECTROCARDIOGRAM REPORT Name: RAGHAV DOWLINGLAND Rebecca Room: [facility]#: [id number] Admission: 11/15/19 Attend Phys: Discharge: 11/15/19 Date of : 53 Date of Service: 11/15/19 1603 Report #: [id number] THIS REPORT FOR: //name// [facility] ED Test Date: 2019-11-15 Test Time: 16:03:23 Pat Name: CHANELLE DOWLING Department: Room: Gender: Concrete Wall Grinder Operator: : 1955 Requested By: Shiv Castaneda Order Number: [id number] MD: Suleman Miller Measurements Intervals [place] Rate: 72 P: 38 NC: 218 QRS: -50 QRSD: 152 T: 53 QT: 448 QTc: 491 Interpretive Statements Sinus rhythm Borderline prolonged NC interval RBBB and LAFB Left ventricular hypertrophy Compared to ECG 05/05/2019 08:52:04 No significant changes Electronically Signed On 11-16-2019 12:41:17 CDT by Suleman Miller [email or web address] <ELECTRONICALLY SIGNED> By: Suleman Miller MD, [facility] 11/16/19 1241 1603 1603 Suleman Miller MD, [facility] /EPI
== END 2019-11-15 17:30 | disposition home or self-care (01) ==
LOC: M.ERS 15:57
PROVIDERS: Physician Assistant
DX: R07.89 Other chest pain (principal); R10.13 Epigastric pain; K21.9 Gastro-esophageal reflux disease without esophagitis; I48.91 Unspecified atrial fibrillation; Z87.891 Personal history of nicotine dependence

== ENCOUNTER → 2019-12-11 | Outpatient (CLI) | payer OTHER | LOC: M.LAB 09:19 | PROVIDERS: ATTEND Internal Medicine Gastroenterology | DX: Z01.812 Encounter for preprocedural laboratory examination (principal); Z20.828 Contact with and (suspected) exposure to other viral communicable diseases; K44.9 Diaphragmatic hernia without obstruction or gangrene ==

== ENCOUNTER → 2020-03-19 | Outpatient (CLI) | payer OTHER | LOC: M.CT 08:25 | PROVIDERS: ATTEND Family Medicine | DX: N28.1 Cyst of kidney, acquired (principal); K76.0 Fatty (change of) liver, not elsewhere classified; R19.5 Other fecal abnormalities; M25.78 Osteophyte, vertebrae; K57.30 Diverticulosis of large intestine without perforation or abscess without bleeding; I70.0 Atherosclerosis of aorta ==

== ENCOUNTER 2020-07-21 04:08 | Observation (INO) | payer OTHER ==
[~2020-07-21] VITALS: Ht 170.2 cm; Wt 77.1 kg
--- NOTE | ~2020-07-21 | CON ---
[address] [address] CONSULTATION Name: CHANELLE DOWLING [facility] Room: [address] IN M.R.#: [id number] Admission: 07/21/20 Attend Phys: Anand Patton Discharge: Date of : 53 Report #: [id number] THIS REPORT FOR: cc: Chelsie Luna Linda J. DO ~ [place], Roxane S. DO NEUROLOGY CONSULT HISTORY OF PRESENT ILLNESS: The patient is a 65-year-old male who states that he came to the Emergency Room for chest pain. Apparently, he has had this pain before and it has been worked up at [facility]. The pain went away and then the pain came back and has been more persistent for the past few days. According to the ER note, the patient has been seeing his family physician for the past 2 months for anxiety, which tend to come on more at night. Apparently, the patient has difficulty sleeping due to chest pain and feelings of anxiety. Dr. Luna, who is his primary care provider, prescribed escitalopram 10 mg daily for him. The patient recently had a cardiac ablation. He also has a remote history of VSD repair. The day of admission, he states that he had dizziness, which he describes as a lightheaded sensation; however, reading the notes from the Emergency Room, the patient states that he had a spinning sensation. He states the dizziness has gone away. PAST MEDICAL HISTORY: Gastroesophageal reflux, atrial flutter, diverticulosis, hernia, anxiety. PAST SURGICAL HISTORY: Ventricular septal defect repair in 1973, cardiac ablation. MEDICATIONS: Escitalopram 10 mg daily. ALLERGIES: None. VITAL SIGNS: Temperature 36.3, pulse rate 44, respiratory rate 14, blood pressure 121/67, bedside pulse oximetry 96% on 2 liters. LABORATORY DATA: Hematology: White blood cell count 6; hemoglobin 15.3; hematocrit 44.4; MCV 91.0; platelet count 211,000. INR 1. Urinalysis negative. Chemistry: Sodium 140, potassium 4, chloride 106, carbon dioxide 22, BUN 21, creatinine 1.2, GFR 61, glucose 96, calcium 9.1, magnesium 2.2, total bilirubin 1.1. Liver functions normal. Troponin 0.06. BNP 107. Total protein 7.3, albumin 4.1. IMAGING STUDIES: CT [place] [address] CONSULTATION Name: CHANELLE DOWLING [facility] Room: [address]#: [id number] Admission: 07/21/20 Attend Phys: Anand Patton Discharge: Date of : 53 Report #: [id number] NEUROLOGIC: Cranial nerves 2-12 are grossly intact. Motor exam demonstrates symmetrical strength in all 4 extremities with tone and bulk normal. Reflexes are symmetrical bilaterally. Coordination demonstrates no evidence of dysmetria. Gait was not tested. IMPRESSION: This patient had an episode of lightheadedness, which has since resolved. Perhaps it is better now that he is on IV fluids. I do not think his symptoms were consistent with stroke. I do find it interesting that he told me he was lightheaded, but told the Emergency Room physician that he felt he was spinning. At this point, I do not recommend any further neurological workup for these symptoms. I will ask Dr. Riddle to see the patient on Wednesday to make sure the symptoms have not returned. I thank you for your kind referral of the patient. By: 1042 1721Rmaximo Munoz DO /elpidio
[2020-07-21 04:10] VITALS: BP 145/55
[2020-07-21] MEDS ORDERED: LEXAPRO 10 MG T10 M2 PO (04:15)
[2020-07-21 04:27] LABS: ABSOLUTE EOSINOPHILS 0.1 thou/uL (0.0-0.7); ABSOLUTE MONOCYTES 0.7 thou/uL (0.0-1.2); ABSOLUTE NEUTROPHILS 2.2 thou/uL (1.6-8.1); BASOPHILS 0.6 %; EOSINOPHILS 1.8 %; HEMATOCRIT 44.4 % (42.0-52.0); HEMOGLOBIN 15.3 gm/dL (14.0-18.0); LYMPHOCYTES 49.2 %; MCH 31.4 pg (26.0-34.0); MCHC 34.5 g/dL (28.0-37.0); MONOCYTES 11.3 %; MPV 6.9 fl. (7.2-11.1); NUCLEATED RBCS 0 /100WBC; PLATELET COUNT* 211 thou/uL (150-400); POLYS 37.1 %; RBC 4.88 mil/uL (4.50-6.00); RDW-CV 12.9 % (10.5-14.5)
[2020-07-21 04:37] LABS: CALCIUM 9.1 mg/dL (8.5-10.1); CREATININE 1.2 mg/dL (0.6-1.3)
[2020-07-21 04:39] LABS: PROTIME 10.2 Seconds (9.20-11.50)
[2020-07-21 04:47] LABS: ALBUMIN 4.1 g/dL (3.4-5.0); MAGNESIUM 2.2 mg/dL (1.8-2.4); TOTAL BILIRUBIN 1.1 mg/dL (<0.1-1.0); TOTAL PROTEIN 7.3 g/dL (6.4-8.2)
[2020-07-21 06:29] LABS: URINE BILIRUBIN NEGATIVE (Negative); URINE BLOOD NEGATIVE (Negative); URINE CLARITY CLEAR; URINE COLOR YELLOW; URINE GLUCOSE-RANDOM NEGATIVE (Negative); URINE KETONES NEGATIVE (Negative); URINE LEUKOCYTES-REFLEX NEGATIVE (Negative); URINE NITRITE-REFLEX NEGATIVE (Negative); URINE PROTEIN NEGATIVE (Negative); URINE UROBILINOGEN 0.2 E.U./dl (0.2-1.0)
[2020-07-21 08:37] LABS: AMP/METHAMP Negative (Negative); BARBITURATES Negative (Negative); BENZODIAZEPINES POSITIVE (Negative); COCAINE Negative (Negative); METHADONE Negative (Negative); OPIATES POSITIVE (Negative); PCP Negative (Negative); THC Negative (Negative)
[2020-07-21 10:00] VITALS: BP 149/76
[2020-07-21 10:40] VITALS: BP 135/65
[2020-07-21 12:00] VITALS: BP 134/56
[2020-07-21] MEDS ORDERED: OMEPRAZOLE40 MG PO (13:20)
[2020-07-21] MEDS ORDERED: FAMOTIDINE20 MG PO (13:21)
[2020-07-21 21:02] VITALS: BP 110/52
[2020-07-22] VITALS: BP 119/64
[2020-07-22 03:05] LABS: GLYCOHEMOGLOBIN (HGB A1C) 5.3 % (4.8-5.6)
[2020-07-22 04:00] VITALS: BP 118/64
[2020-07-22 04:27] LABS: ABSOLUTE EOSINOPHILS 0.1 thou/uL (0.0-0.7); ABSOLUTE LYMPHOCYTES 2.1 thou/uL (0.8-5.3); ABSOLUTE MONOCYTES 0.6 thou/uL (0.0-1.2); ABSOLUTE NEUTROPHILS 2.7 thou/uL (1.6-8.1); BASOPHILS 0.5 %; EOSINOPHILS 1.7 %; HEMATOCRIT 43.2 % (42.0-52.0); HEMOGLOBIN 14.7 gm/dL (14.0-18.0); LYMPHOCYTES 38.2 %; MCH 31.4 pg (26.0-34.0); MCHC 34.1 g/dL (28.0-37.0); MCV 92.1 fL (80.0-100.0); MONOCYTES 10.4 %; NUCLEATED RBCS 0 /100WBC; PLATELET COUNT* 185 thou/uL (150-400); POLYS 49.2 %; RBC 4.69 mil/uL (4.50-6.00); RDW-CV 12.9 % (10.5-14.5); WBC 5.5 thou/uL (4.0-11.0)
[2020-07-22 04:46] LABS: CHOLESTEROL 128 mg/dL (<200); HDL CHOLESTEROL 60 mg/dL (>40); LDL CHOLESTEROL 50 mg/dL (<100); TC:HDL 2.1 Ratio (Not establshd); TRIGLYCERIDE 92 mg/dL (<150); VLDL 18 mg/dL (<40)
[2020-07-22 05:06] LABS: SERUM ASSESSMENT Clear
[2020-07-22 05:36] LABS: CALCIUM 8.6 mg/dL (8.5-10.1); CREATININE 1.1 mg/dL (0.6-1.3); POTASSIUM 4.2 mmol/L (3.5-5.1)
[2020-07-22 08:49] VITALS: BP 121/73
[2020-07-22] MEDS ORDERED: LEXAPRO 10 MG T10 M1 PO (08:53)
--- NOTE | 2020-07-22 11:07 | EKG ---
[place] [address] ELECTROCARDIOGRAM REPORT Name: CHANELLE DOWLING [facility] Room: [address] M.R.#: [id number] Admission: 07/21/20 Attend Phys: Ham Jones Discharge: Date of : 53 Date of Service: 07/21/20 0411 Report #: [id number] THIS REPORT FOR: //name// [facility] ED Test Date: 2020-07-21 Test Time: 04:11:35 Pat Name: CHANELLE DOWLING Department: Room: [facility] Gender: M Sales Attendant Building Materials: MS : 1955 Requested By: Hortencia Keating Order Number: [id number] MD: Elliott Yanes Measurements Intervals [place] Rate: 69 P: 0 PA: 158 QRS: -64 QRSD: 155 T: 64 QT: 449 QTc: 481 Interpretive Statements Sinus rhythm RBBB Nonspecific IVCD with LAD Left ventricular hypertrophy Compared to ECG 11/15/2019 16:03:23 no change Electronically Signed On 07-22-2020 11:07:13 CDT by Elliott Yanes [email or web address] <ELECTRONICALLY SIGNED> By: Elliott Yanes MD, [facility] 07/22/20 1107 0411 0411 Elliott Yanes MD, [facility] /EPI
[2020-07-22 14:18] VITALS: BP 121/73
--- NOTE | 2020-07-23 15:21 | CON ---
[facility] [address] [place] [address] CONSULTATION Name: CHANELLE DOWLING [facility] Room: [address] Dangelo Morgan#: [id number] Admission: 07/21/20 Attend Phys: Anand Patton Discharge: 07/22/20 Date of : 53 Report #: [id number] THIS REPORT FOR: cc: Chelsie Luna Linda J. DO ~ Blick, David R. MD [facility] DATE OF SERVICE: 07/22/2020 CARDIOLOGY CONSULTATION HISTORY OF PRESENT ILLNESS: The patient is a 65-year-old white male who I was asked to see in the hospital today after he complained of chest pain. The patient has an extensive and complicated past medical history. He apparently had a VSD repaired when he was 16 years old in [place], [place]. He has a history of atrial arrhythmias and actually he underwent radiofrequency ablation at [facility] by Dr. Coffman last December for atrial flutter. He apparently returned in January with atrial fibrillation and had a second ablation by Dr. Coffman. He was eventually taken off of anticoagulation that included Eliquis. Recently, he complained of chest pain. He actually decided to go to and see Dr. Diaz. He was admitted to and apparently had a stress test, echocardiogram. Initially, he was thought that he had pericarditis and was treated, but chest pain did not improve. Recently, he continues to complain of a sharp pain in his chest. It usually occurs when he is anxious. It occurs on the right and left side. He notes it is worse when he lies still. If he is active, he does not notice a sharp chest pain. He apparently did have an EGD in the past which showed a hiatal hernia. He has been on antacids. He does belch a lot. He has had no bleeding. Denied any fever or cough. Because of chest pain, he finally came to the hospital yesterday and admitted for further evaluation and treatment. Denies any diaphoresis. Denies shortness of breath. He has had no further palpitations or syncope. PAST MEDICAL HISTORY: Significant for hernia repair, testicular surgery as a child. He has no history of hypertension, diabetes. CURRENT MEDICATIONS: Include omeprazole, Lipitor, aspirin. ALLERGIES: He has no known drug allergies. FAMILY HISTORY: His mother had heart disease. 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 Quit smoking a year ago, rarely drinks alcohol. REVIEW OF SYSTEMS: He has had no history of stroke or asthma. [place] [address] CONSULTATION Name: CHANELLE DOWLING LINK Room: [address] Dangelo Morgan#: [id number] Admission: 07/21/20 Attend Phys: Anand Patton Discharge: 07/22/20 Date of : 53 Report #: [id number] colonoscopy in the past which showed evidence of diverticular disease. He has had a kidney stone. No cancer. No psychiatric illness. No chronic skin condition. PHYSICAL EXAMINATION: GENERAL: Revealed a middle-aged male, appeared in no distress. VITAL SIGNS: He had a blood pressure of 120/70, pulse is 60. He is afebrile. HEENT: He was anicteric. Conjunctivae pink. Mucous membranes moist. NECK: Veins nondistended. No carotid bruits. Neck supple. CHEST: Clear to auscultation. CARDIOVASCULAR: Regular rate and rhythm without rub. ABDOMEN: Soft. EXTREMITIES: Had no edema. Posterior tibial pulse 2+ bilaterally. SKIN: Cool and dry. NEUROLOGIC: Nonfocal. RADIOLOGICAL DATA: His ECG showed a sinus rhythm, left anterior fascicular block, incomplete right bundle-branch block. His ECG was unchanged from one that was done in 04/2019. His workup, he had a portable chest x-ray in the Emergency Room yesterday that showed some atelectasis, otherwise unremarkable. He actually had a CT scan of the head because of dizziness that showed small vessel changes, otherwise unremarkable. LABORATORY WORK: Sodium 143, creatinine 1.0. Troponin less than 0.06. His urine drug screen was positive for benzodiazepine and opiates. His white blood cell count 5.5, hemoglobin 14.7. His urinalysis is negative for protein. His COVID antigen stat test was negative. IMPRESSION AND RECOMMENDATIONS: 1. Chest pain. Atypical for angina. Suspect noncardiac. I would not perform any cardiac evaluation at this time until the results of his workup at from 2 months ago was obtained that apparently included a stress test and an echocardiogram. 2. History of atrial fibrillation. Previous ablation. Currently in sinus rhythm. 3. Previous repair of ventricular septal defect. Await results of recent echo. 4. Hyperlipidemia. The patient is on a statin drug. Apparently, the patient had coronary calcium scoring at that showed minimal plaque. 5. Previous tobacco abuse. The patient quit smoking a year ago. <ELECTRONICALLY SIGNED> By: Elliott Yanes MD, [facility] 07/23/20 1521 1015 [id number] Yanes MD, FACC /nt
== END 2020-07-22 14:49 | disposition home or self-care (01) ==
LOC: M.ERS 04:08 → M.2W 07:10 → M.TBA-ER 07:10 → M.2W 07:10
PROVIDERS: Emergency Medicine; Internal Medicine; ADMIT Internal Medicine; ATTEND Internal Medicine
DX: R07.89 Other chest pain (principal); K21.9 Gastro-esophageal reflux disease without esophagitis; K44.9 Diaphragmatic hernia without obstruction or gangrene; R00.1 Bradycardia, unspecified; F41.9 Anxiety disorder, unspecified; Z87.891 Personal history of nicotine dependence; Z79.899 Other long term (current) drug therapy; Z20.822 Contact with and (suspected) exposure to COVID-19

== ENCOUNTER 2020-09-30 13:16 | Observation (INO) | payer OTHER, MEDICARE ==
[~2020-09-30] VITALS: Ht 175.3 cm; Wt 78.0 kg
[~2020-09-30 13:16] MED LIST changes: +FAMOTIDINE20 MG PO; +LEXAPRO 10 MG T10 M1 PO; +LEXAPRO 10 MG T10 M2 PO
[2020-09-30 13:25] VITALS: BP 133/89
[2020-09-30 14:42] LABS: ABSOLUTE LYMPHOCYTES 1.9 thou/uL (0.8-5.3); ABSOLUTE MONOCYTES 0.7 thou/uL (0.0-1.2); ABSOLUTE NEUTROPHILS 4.3 thou/uL (1.6-8.1); BASOPHILS 0.3 %; EOSINOPHILS 0.7 %; HEMATOCRIT 43.9 % (42.0-52.0); HEMOGLOBIN 15.2 gm/dL (14.0-18.0); LYMPHOCYTES 27.7 %; MCH 31.8 pg (26.0-34.0); MCHC 34.5 g/dL (28.0-37.0); MCV 92.2 fL (80.0-100.0); MONOCYTES 9.6 %; MPV 6.3 fl. (7.2-11.1); NUCLEATED RBCS 0 /100WBC; PLATELET COUNT* 221 thou/uL (150-400); POLYS 61.7 %; RBC 4.77 mil/uL (4.50-6.00); RDW-CV 13.3 % (10.5-14.5)
[2020-09-30 14:53] LABS: CALCIUM 8.7 mg/dL (8.5-10.1); CREATININE 1.1 mg/dL (0.6-1.3)
[2020-09-30 14:56] LABS: APTT 30.8 Seconds (25.0-31.3); PROTIME 10.6 Seconds (9.20-11.50)
[2020-09-30 15:04] LABS: ALBUMIN 4.2 g/dL (3.4-5.0); MAGNESIUM 2.1 mg/dL (1.8-2.4); TOTAL BILIRUBIN 1.2 mg/dL (<0.1-1.0); TOTAL PROTEIN 7.6 g/dL (6.4-8.2)
[2020-09-30 21:30] VITALS: BP 103/64
[2020-10-01] VITALS (7 sets, daily range): BP systolic 102–140; BP diastolic 46–78
[2020-10-01 01:25] LABS: HEMATOCRIT 42.3 % (42.0-52.0); HEMOGLOBIN 14.6 gm/dL (14.0-18.0); MCH 32.2 pg (26.0-34.0); MCHC 34.7 g/dL (28.0-37.0); MPV 6.5 fl. (7.2-11.1); RBC 4.55 mil/uL (4.50-6.00); RDW-CV 13.2 % (10.5-14.5); WBC 6.3 thou/uL (4.0-11.0)
[2020-10-01 01:38] LABS: ALBUMIN 3.7 g/dL (3.4-5.0); ALKALINE PHOSPHATASE 74 U/L (46-116); ANION GAP 11 mmol/L (7-16); BUN 18 mg/dL (7-18); CALCIUM 8.6 mg/dL (8.5-10.1); CHLORIDE 108 mmol/L (98-107); CHOLESTEROL 135 mg/dL (<200); CO2 22 mmol/L (21-32); GLUCOSE 80 mg/dL (70-99); HDL CHOLESTEROL 68 mg/dL (>40); LDL CHOLESTEROL 57 mg/dL (<100); POTASSIUM 3.9 mmol/L (3.5-5.1); SERUM ASSESSMENT Clear; SGOT 18 U/L (15-37); SGPT 25 U/L (30-65); SODIUM 141 mmol/L (136-145); TOTAL BILIRUBIN 0.9 mg/dL (<0.1-1.0); TOTAL PROTEIN 6.9 g/dL (6.4-8.2); TRIGLYCERIDE 52 mg/dL (<150); VLDL 10 mg/dL (<40)
[2020-10-01 09:51] LABS: CALCIUM 8.9 mg/dL (8.5-10.1); TOTAL BILIRUBIN 1.3 mg/dL (<0.1-1.0); TOTAL PROTEIN 7.4 g/dL (6.4-8.2)
--- NOTE | 2020-10-01 12:01 | EKG ---
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: REGIS : 1955 Requested By: Chela Sawant Order Number: [id number] MD: Suleman Miller Measurements Intervals [place] Rate: 60 P: 34 KS: 211 QRS: -62 QRSD: 156 T: 50 QT: 466 QTc: 466 Interpretive Statements Sinus rhythm Atrial premature complex Right bundle branch block with left anterior hemiblock Left ventricular hypertrophy Nonspecific right precordial ST-T abnormalities Compared to ECG 07/21/2020 04:11:35 Atrial premature complex(es) now present T-wave abnormality now present Electronically Signed On 10-01-2020 12:00:47 CDT by Suleman Miller [email or web address] <ELECTRONICALLY SIGNED> By: Suleman Miller MD, [facility] 10/01/20 1200 1520 1520 Suleman Miller MD, [facility] /EPI
--- NOTE | 2020-10-01 12:37 | EKG ---
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 : 1955 Requested By: Rose Mary Reid Order Number: [id number] Reading MD: Suleman Miller Measurements Intervals [place] Rate: 58 P: [place]: QRS: -54 QRSD: 161 T: 45 QT: 469 QTc: 461 Interpretive Statements Sinus rhythm RBBB and LAFB Left ventricular hypertrophy Compared to ECG 09/30/2020 15:20:2 Right bundle-branch block now present Atrial premature complex(es) no longer present T-wave abnormality no longer present Possible ischemia no longer present Electronically Signed On 10-01-2020 12:36:56 CDT by Suleman Miller [email or web address] <ELECTRONICALLY SIGNED> By: Suleman Miller MD, [facility] 10/01/20 1236 0642 0642 Suleman Miller MD, [facility] /EPI
--- NOTE | 2020-10-01 13:31 | 2DMMODE ---
[place] [address] 2 D/M-MODE ECHOCARDIOGRAM Name: CHANELLE DOWLING [facility] Room: [address] Eddie#: [id number] Admission: 09/30/20 Attend Phys: Rose Mary Reid Discharge: Date of : 53 Date of Service: 10/01/20 1331 Report #: [id number] THIS REPORT FOR: cc: Chelsie Luna Linda J. DO Liston, Michael J. MD [facility] ~ APPROVED REPORT Study performed: 10/01/2020 10:34:27 EXAM: Comprehensive 2D, Doppler, and color-flow Echocardiogram Patient Location: In-Patient Room #: [facility] Status: routine BSA: 1.94 HR: 57 bpm BP: 111/60 mmHg Rhythm: NSR Other Information Study Quality: Good Indications CVA/TIA HX of VSD repair/patch Echo Enhancing Agent Indication: Rule out Shunt Agent(s) / Amount(s) Used: Agitated Saline 10 cc 2D Dimensions IVSd: 9.37 (7-11mm) LVOT Diam: 23.99 (18-24mm) LVDd: 47.00 mm PWd: 8.75 (7-11mm) Ascending Ao: 37.47 (22-36mm) LVDs: 33.20 (25-40mm) Aortic Root: 38.02 mm Volumes Left Atrial Volume (Systole) LA ESV Index: 29.40 mL/m2 Aortic Valve AoV Peak Abdon.: 1.57 m/s AO Peak Gr.: 9.87 mmHg LVOT Max P.32 [place] [address] 2 D/M-MODE ECHOCARDIOGRAM Name: CHANELLE DOWLING [facility] Room: [address] MLarisaR.#: [id number] Admission: 09/30/20 Attend Phys: Rose Mary Reid Discharge: Date of : 53 Date of Service: 10/01/20 1331 Report #: [id number] Mean Gr.: 5.27 mmHg LVOT Mean P.05 mmHg LVOT Max V: 1.04 m/s AO V2 VTI: 29.48 cm LVOT Mean V: 0.66 m/s JEAN CARLOS (VTI): 3.30 cm2 LVOT V1 VTI: 21.53 cm AI Candler: 1.65 m/s2 AI PHT: 772.09 ms Mitral Valve E/A Ratio: 0.83 MV Decel. Time: 285.93 ms MV E Max Abdon.: 0.64 m/s MV PHT: 82.92 ms MVA (PHT): 2.65 cm2 TDI E/Lateral E': 5.82 E/Medial E': 8.00 Medial E' Abdon.: 0.08 m/s Lateral E' Abdon.: 0.11 m/s Pulmonary Valve PV Peak Abdon.: 0.86 m/s PV Peak Gr.: 2.93 mmHg Tricuspid Valve RAP Estimate: 5.00 mmHg TR Peak Gr.: 17.63 mmHg RVSP: 22.00 mmHg PA Pressure: 22.00 mmHg Left Ventricle The left ventricle is normal size. There is normal LV segmental wall motion. There is normal left ventricular wall thickness. History of VSD repair Left ventricular systolic function is normal. LVEF is 55-60%. Grade I - abnormal relaxation pattern. Right Ventricle The right ventricle is normal size. The right ventricular systolic function is normal. Atria The left atrium size is normal. The interatrial septum is intact with no evidence for an atrial septal defect. The right atrium size is normal. Aortic Valve Mild aortic valve sclerosis. Mild aortic regurgitation. There is no [place] [address] 2 D/M-MODE ECHOCARDIOGRAM Name: [facility] Room: [address] Dangelo MLarisaRLarisa#: [id number] Admission: 09/30/20 Attend Phys: Rose Mary Reid Discharge: Date of : 53 Date of Service: 10/01/20 1331 Report #: [id number] Mitral Valve The mitral valve is normal in structure. There is no mitral valve regurgitation noted. No evidence of mitral valve stenosis. Tricuspid Valve The tricuspid valve is normal in structure. Trace tricuspid regurgitation. No pulmonary hypertension. Pulmonic Valve The pulmonary valve is normal in structure. There is no pulmonic valvular regurgitation. Great Vessels The aortic root is normal in size. IVC is normal in size and collapses >50% with inspiration. Pericardium There is no pericardial effusion. <Conclusion> The left ventricle is normal size. There is normal left ventricular wall thickness. Left ventricular systolic function is normal. LVEF is 55-60%. Grade I - abnormal relaxation pattern. There is normal LV segmental wall motion. The interatrial septum is intact with no evidence for an atrial septal defect. Mild aortic regurgitation. Trace tricuspid regurgitation. No pulmonary hypertension. IVC is normal in size and collapses >50% with inspiration. <ELECTRONICALLY SIGNED> By: Sergio Lantigua MD, FACC 10/01/20 1331 30 30 Sergio Lantigua MD, FACC /INF
[2020-10-02 00:27] VITALS: BP 108/67
[2020-10-02 02:06] LABS: GLYCOHEMOGLOBIN (HGB A1C) 5.3 % (4.8-5.6)
[2020-10-02 04:15] VITALS: BP 110/70
[2020-10-02 07:45] VITALS: BP 128/67
[2020-10-02] MEDS ORDERED: LISINOPRIL2.5 MG PO (11:43)
[2020-10-02] MEDS ORDERED: LIPITOR 40 MG T40 M1 PO (11:43)
[2020-10-02] MEDS ORDERED: ADULT LOW DOSE81 MG PO (11:45)
[2020-10-02 15:46] VITALS: BP 128/67
== END 2020-10-02 16:06 | disposition home or self-care (01) ==
LOC: M.ERS 13:16 → M.2W 17:30 → M.TBA-ER 17:30 → M.2W 10-01 10:13
PROVIDERS: Family Medicine; Internal Medicine; Nurse Practitioner Family; ADMIT Internal Medicine; ATTEND Internal Medicine
DX: R20.0 Anesthesia of skin (principal); R53.1 Weakness; Z20.822 Contact with and (suspected) exposure to COVID-19; K21.9 Gastro-esophageal reflux disease without esophagitis; I49.8 Other specified cardiac arrhythmias; M51.26 Other intervertebral disc displacement, lumbar region; N50.812 Left testicular pain; F41.9 Anxiety disorder, unspecified; R42 Dizziness and giddiness; R07.89 Other chest pain; I11.0 Hypertensive heart disease with heart failure; I50.32 Chronic diastolic (congestive) heart failure; I45.10 Unspecified right bundle-branch block; I35.1 Nonrheumatic aortic (valve) insufficiency; Z87.891 Personal history of nicotine dependence

== ENCOUNTER → 2020-10-28 | Outpatient (CLI) | payer OTHER, MEDICARE ==
[~2020-10-28] MED LIST changes: +ADULT LOW DOSE81 MG PO; +LIPITOR 40 MG T40 M1 PO; +LISINOPRIL2.5 MG PO
== END ==
LOC: M.MRI 08:25
PROVIDERS: ATTEND Family Medicine
DX: M47.812 Spondylosis without myelopathy or radiculopathy, cervical region (principal); M54.2 Cervicalgia; R90.82 White matter disease, unspecified; I42.8 Other cardiomyopathies; M48.02 Spinal stenosis, cervical region

== ENCOUNTER 2020-11-17 12:34 | Observation (INO) | payer OTHER, MEDICARE ==
[~2020-11-17] VITALS: Ht 177.8 cm; Wt 75.3 kg
--- NOTE | ~2020-11-17 | PROC ---
[address] [address] PROCEDURE REPORT Name: CHANELLE DOWLING LINK Room: [address] Dangelo Morgan#: [id number] Admission: 11/17/20 Attend Phys: Franklyn Sinclair MD Discharge: 11/18/20 Date of : 53 Report #: [id number] THIS REPORT FOR: cc: Chelsie Luna Linda J. DO [facility],Medical Records Staff ~ For Gi report, please see the Provation report in Perceptive 7 content. By: 1500Medical Records Staff MICHAEL /SUKHI
--- NOTE | ~2020-11-17 | PROC ---
[address] [address] PROCEDURE REPORT Name: CHANELLE DOWLING LINK Room: [address] Dangelo Morgan#: [id number] Admission: 11/17/20 Attend Phys: Franklyn Sinclair MD Discharge: 11/18/20 Date of : 53 Report #: [id number] THIS REPORT FOR: cc: Chelsie Luna Linda J. DO [facility],Medical Records Staff ~ For GI report, please see the Provation report in Perceptive 7 content. By: 1500Medical Records Staff MICHAEL /SUKHI
[2020-11-17 12:47] VITALS: BP 127/77
[2020-11-17 13:07] LABS: ABSOLUTE EOSINOPHILS 0.1 thou/uL (0.0-0.7); ABSOLUTE LYMPHOCYTES 1.7 thou/uL (0.8-5.3); ABSOLUTE MONOCYTES 0.7 thou/uL (0.0-1.2); ABSOLUTE NEUTROPHILS 6.9 thou/uL (1.6-8.1); BASOPHILS 0.4 %; EOSINOPHILS 0.6 %; HEMATOCRIT 46.8 % (42.0-52.0); HEMOGLOBIN 16.4 gm/dL (14.0-18.0); LYMPHOCYTES 17.9 %; MCH 32.4 pg (26.0-34.0); MCV 92.6 fL (80.0-100.0); MONOCYTES 7.1 %; MPV 6.5 fl. (7.2-11.1); NUCLEATED RBCS 0 /100WBC; PLATELET COUNT* 221 thou/uL (150-400); RBC 5.05 mil/uL (4.50-6.00); RDW-CV 13.5 % (10.5-14.5); WBC 9.3 thou/uL (4.0-11.0)
[2020-11-17 13:16] LABS: CALCIUM 8.7 mg/dL (8.5-10.1); CREATININE 1.1 mg/dL (0.6-1.3); POTASSIUM 4.2 mmol/L (3.5-5.1)
[2020-11-17 13:21] LABS: ALBUMIN 4.2 g/dL (3.4-5.0); TOTAL BILIRUBIN 1.3 mg/dL (<0.1-1.0); TOTAL PROTEIN 7.8 g/dL (6.4-8.2)
--- NOTE | 2020-11-17 14:58 | NUR ---
PACU DANNY RN HERE AT BEDSIDE, REPORT GIVEN. PT TRANSFERRED TO OR. ALL PT BELONGINGS SENT WITH PT
[2020-11-17 15:00] VITALS: BP 130/63
--- NOTE | 2020-11-17 17:22 | NUR ---
PATIENT ARRIVED TO UNIT FROM PACU AT APPROX. 1640 FOLLOWING A FECAL DISIMPACTION. PATIENT IS A&OX4, PLEASANT AND COOPERATIVE WITH CARES, , CAROLINE, AT BEDSIDE. PATIENT DENIES ANY PAIN AND STATES "IM FEELING MUCH BETTER THAN I DID THIS MORNING." URINARY CATHETER IN PLACE TO DD, CLEAR YELLOW URINE IN COLLECTION BAG. PATIENT STATES HE HAS TOP AND BOTTOM PARTIAL PLATES HOWEVER LEFT THEM AT HOME. PATIENT'S JUST NOTIFIED THIS NURSE THAT PATIENT IS CURRENTLY HAVING A BOWEL MOVEMENT IN ROOM. WILL ADMINISTER MEDICATIONS ORDERED. PATIENT UP AD ADRIANNE IN ROOM. CALL LIGHT AND FREQUENTLY USED ITEMS WITHIN REACH.
[2020-11-17 20:23] VITALS: BP 117/60
[2020-11-17 21:14] LABS: URINE BILIRUBIN NEGATIVE (Negative); URINE BLOOD 1+ (Negative); URINE CLARITY CLEAR; URINE COLOR YELLOW; URINE GLUCOSE-RANDOM NEGATIVE (Negative); URINE KETONES NEGATIVE (Negative); URINE LEUKOCYTES-REFLEX NEGATIVE (Negative); URINE NITRITE-REFLEX NEGATIVE (Negative); URINE PROTEIN NEGATIVE (Negative); URINE SPECIFIC GRAVITY <= 1.005 (1.005-1.030); URINE UROBILINOGEN 0.2 E.U./dl (0.2-1.0)
[2020-11-17 21:24] LABS: CASTS None Seen /LPF (None Seen); MUCUS 0-3 Light strn/LPF (None Seen); SQUAMOUS NONE SEEN /LPF (0-3); URINE WBC-REFLEX 6-15 Few /HPF (0-5)
[2020-11-17 21:25] LABS: CRYSTALS None Seen /LPF (None Seen)
--- NOTE | 2020-11-18 04:46 | NUR ---
PATIENT SLEPT WELL DURING THIS SHIFT. PT UP AD ADRIANNE TO BATHROOM FOR BOWEL MOVEMENTS. PT SAID STOOLS HAD SMALL AMOUNT OF BRIGHT RED BLOOD. PT WAS TOLD TO SAVE STOOLS AND LET STAFF SEE IT. PT WITH MELO TO DEPENDENT DRAIN WITH YELLOW URINE. PT IS ON ROOM AIR; DENIES NEEDS AT THIS TIME. FREQUENTLY USED ITEMS AND CALL LIGHT WITHIN REACH. SIDERAILS UPX2. WILL CONTINUE TO MONITOR.
[2020-11-18 05:14] LABS: ABSOLUTE EOSINOPHILS 0.1 thou/uL (0.0-0.7); ABSOLUTE LYMPHOCYTES 2.4 thou/uL (0.8-5.3); ABSOLUTE MONOCYTES 0.9 thou/uL (0.0-1.2); ABSOLUTE NEUTROPHILS 6.5 thou/uL (1.6-8.1); BASOPHILS 0.5 %; EOSINOPHILS 0.7 %; HEMATOCRIT 43.3 % (42.0-52.0); LYMPHOCYTES 24.2 %; MCH 32.1 pg (26.0-34.0); MCHC 34.7 g/dL (28.0-37.0); MCV 92.6 fL (80.0-100.0); MPV 6.9 fl. (7.2-11.1); NUCLEATED RBCS 0 /100WBC; PLATELET COUNT* 197 thou/uL (150-400); POLYS 65.6 %; RBC 4.68 mil/uL (4.50-6.00); RDW-CV 13.3 % (10.5-14.5); WBC 9.9 thou/uL (4.0-11.0)
[2020-11-18 05:28] LABS: CALCIUM 8.6 mg/dL (8.5-10.1); CREATININE 1.1 mg/dL (0.6-1.3); POTASSIUM 3.7 mmol/L (3.5-5.1)
[2020-11-18 08:17] VITALS: BP 112/61
[2020-11-18] MEDS ORDERED: MIRALAX17 GM PO (09:44)
[2020-11-18] MEDS ORDERED: SENOKOT-S1 TA2 PO (09:55)
[2020-11-18 11:00] VITALS: BP 112/61
--- NOTE | 2020-11-18 12:04 | NUR ---
PT DISCHARGED TO HOME AT ABOUT NOON WITH NURSING STAFF. IV OUT. PT STABLE. PT HAD MULTIPLE BM BEFORE DC. MELO REMOVED. PERSONAL BELONGINGS SENT WITH PT.
--- NOTE | 2020-11-18 14:38 | EKG ---
[place] [address] ELECTROCARDIOGRAM REPORT Name: CHANELLE DOWLING [facility] Room: [address]#: [id number] Admission: 11/17/20 Attend Phys: Franklyn Sinclair, Discharge: 11/18/20 Date of : 53 Date of Service: 11/17/20 1310 Report #: [id number] THIS REPORT FOR: //name// [facility] ED Test Date: 2020-11-17 Test Time: 13:10:40 Pat Name: CHANELLE DOWLING Department: Room: [facility] Gender: M Hostel Parent: LO- MEDIC STUDENT : 1955 Requested By: Shiv Castaneda Order Number: [id number] MD: Suleman Miller Measurements Intervals [place] Rate: 65 P: 13 CT: 159 QRS: -52 QRSD: 159 T: 62 QT: 457 QTc: 476 Interpretive Statements Sinus rhythm RBBB and LAFB Left ventricular hypertrophy Baseline wander in lead(s) II Compared to ECG 10/01/2020 06:42:31 No significant interval change Electronically Signed On 11-18-2020 14:37:56 CDT by Suleman Miller [email or web address] <ELECTRONICALLY SIGNED> By: Suleman Miller MD, [facility] 11/18/20 1437 131 1310 Suleman Miller MD, [facility] /EPI
--- NOTE | 2020-11-18 16:01 | NUR ---
Admission assessment Lives in ranch home with , Jimmy. Still drives and is independent with ADLs. No DME, HH, SNU, ARU hx. No dc needs identified.
--- NOTE | 2020-11-20 17:47 | CON ---
[address] [address] CONSULTATION Name: CHANELLE DOWLING [facility] Room: [address] Dangelo Morgan#: [id number] Admission: 11/17/20 Attend Phys: Franklyn Sinclair MD Discharge: 11/18/20 Date of : 53 Report #: [id number] THIS REPORT FOR: cc: Chelsie Luna Linda J. DO Vardakis, Gregory DO ~ cc: Franklyn Sinclair MD, Chelsie Luna DO DATE OF CONSULTATION: 11/17/2020 REFERRING PHYSICIAN: Franklyn Sinclair MD TIME OF CONSULTATION: 1500 hours. REASON FOR CONSULTATION: Fecal impaction. IMPRESSION: 1. Fecal impaction with inability to pass any stool. 2. Chronic constipation with recent EGD and colonoscopy performed in 04/2020 revealing only diverticular disease, hemorrhoids, and a couple of hyperplastic polyps. 3. Chronic acid reflux, which is nonerosive in nature. RECOMMENDATIONS: 1. The ER attempted to disimpact the patient, but he is too uncomfortable. For this reason, we will proceed with fecal disimpaction under anesthesia today and get him on a bowel regimen that will work to keep his bowels moving on a regular basis. 2. I have discussed this plan with the patient as well as his significant other and they are agreeable to the same. HISTORY OF PRESENT ILLNESS: The patient is a pleasant 65-year-old white male with longstanding history of chronic constipation, who does go to the bathroom every 2-3 days, who has not been able to go to the bathroom for the last 3 or 4 days. He knew that he has tried to pass some stool this morning, but it was very hard and difficult to pass. Then, he tried suppositories as well as an enema, but nothing would go up. He then came to the Emergency Room, was found to have a fecal impaction on CT scan. Attempts were made by the ER staff with incomplete results. He is now here for disimpaction under anesthesia. The patient's case was discussed with Dr. Sinclair. He denies any complaints. He states his reflux symptoms are well controlled with current dose of omeprazole. He denies dysphagia, odynophagia, postprandial pain, or any problems normally with his bowels or bowel frequency other than tendency towards constipation. Attempts were made back in December of last [place] [address] CONSULTATION Name: CHANELLE DOWLING [facility] Room: [address] Eddie#: [id number] Admission: 11/17/20 Attend Phys: Franklyn Sinclair MD Discharge: 11/18/20 Date of : 53 Report #: [id number] for him to undergo colonoscopy, but his bowel preparation was poor, so he underwent a second colonoscopy in April of last year and still his prep was only fair. This is despite the fact that he had 2-day bowel prep. He definitely has issues with constipation. He has no known family history of any colon polyps or colon cancer. He is admitted to the hospital for further evaluation and treatment. ALLERGIES: None. MEDICATIONS: Include omeprazole and aspirin. PAST MEDICAL AND SURGICAL HISTORY: Remarkable for acid reflux. He has a history of atrial fibrillation and flutter for which he has undergone previous ablation in the past. PAST SURGICAL HISTORY: He has had a history of ventricular septal defect, which was repaired by open heart surgery at age of 18. He has had history of diverticular disease and a hernia repair. SOCIAL HISTORY: The patient smokes. He does drink alcohol occasionally. FAMILY HISTORY: Negative. PHYSICAL EXAMINATION: GENERAL: Pleasant 65-year-old white male who is awake and alert. CARDIOPULMONARY: Revealed a regular rate and rhythm. LUNGS: Clear. ABDOMEN: Soft and nontender. No rebound or guarding noted. LABORATORY TESTS: Revealed a white count of 9.3, hemoglobin 16.4, platelet count 221,000. MCV is 92.6 and RDW 13.5. Differential is normal. Sodium 140, potassium 4.2, chloride 105, bicarbonate 24, BUN is 21, creatinine 1.1 for GFR of 67. Total bilirubin 1.3, alkaline phosphatase 83, AST 21, ALT 35. His albumin was 4.2. IMAGING DATA: CT scan of the abdomen and pelvis revealed large amount of stool noted within the rectum compatible with a fecal impaction. There is no evidence for colonic obstruction. He does have a small left inguinal hernia containing some fat. He has bilateral renal cysts and remainder of the CT is unremarkable. DISCUSSION: At the present time, the patient has got a fecal impaction. It has been difficult for them to take care of it through the emergency room. We will [address] [address] CONSULTATION Name: CHANELLE DOWLING LINK Room: [address] M.R.#: [id number] Admission: 11/17/20 Attend Phys: Franklyn Sinclair MD Discharge: 11/18/20 Date of : 53 Report #: [id number] proceed with fecal disimpaction under MAC anesthesia and make further recommendations thereafter. <ELECTRONICALLY SIGNED> By: Dennis Henderson DO 11/20/20 1747 1442 [id number] Henderson DO /nt
--- NOTE | 2020-11-20 17:47 | PROC ---
[address] [address] PROCEDURE REPORT Name: CHANELLE DOWLING [facility] Room: [address] Dangelo Morgan#: [id number] Admission: 11/17/20 Attend Phys: Franklyn Sinclair MD Discharge: 11/18/20 Date of : 53 Report #: [id number] THIS REPORT FOR: cc: Chelsie Luna Linda J. DO Vardakis, Gregory DO ~ cc: Franklyn Sinclair MD, Chelsie Luna DO DATE OF PROCEDURE: 11/17/2020 REFERRING PHYSICIAN: Franklyn Sinclair MD PROCEDURE PERFORMED: Fecal disimpaction under MAC sedation. SEDATION USED: Monitored anesthesia care with propofol. SPECIMEN RETRIEVED: Stool. INDICATIONS: The patient is a 65-year-old white male who presented to the Emergency Room with a fecal impaction. Please refer to my GI consultation for details. Physical exam revealed a pleasant 65-year-old white male who is in no distress. His cardiopulmonary exam is benign. His abdomen is soft, nontender. No rebound or guarding noted. DESCRIPTION OF PROCEDURE: An informed consent was obtained from the patient including the nature, risks, benefits and alternatives described. The patient was placed in the left lateral decubitus position with oximetry, blood pressure and cardiac monitoring. IV sedation was titrated with medication to effect. Anal inspection was unremarkable. Digital rectal examination revealed firm hard stool noted within the rectal vault. Using a double gloved finger, I was able to loosen up the stool. It was noted within the rectal vault. I was able to disimpact the whole of the hard stool. Multiple formed hard balls of stool were removed from the rectal vault. The patient tolerated the procedure well, was cleaned up and a Squires catheter was placed in the patient since he was unable to urinate. The patient was then sent to recovery room in stable condition. IMPRESSION: 1. Successful fecal disimpaction. 2. Chronic constipation. RECOMMENDATIONS: 1. We will have the patient get a soapsuds enema today [place] [address] PROCEDURE REPORT Name: CHANELLE DOWLING [facility] Room: [address] Dangelo Morgan#: [id number] Admission: 11/17/20 Attend Phys: Franklyn Sinclair MD Discharge: 11/18/20 Date of : 53 Report #: [id number] of mag citrate plus 4 Dulcolax tabs to allow the stool that was in the colon to go through. 2. The patient will have to be on MiraLax 17 grams 1-2 times per day to help keep his bowels moving on a regular basis. 3. He will need to stay in the hospital until tomorrow, but we will go ahead and let him on a heart healthy diet. 4. He will have followup with us in the office in 6-8 weeks to ensure that everything is moving as far as bowel is concerned. 5. The patient needs to be on a high-fiber diet, needs to drink at least 64 ounces of water and make sure he is eating 3 meals a day. He also does eat lots of fruits, vegetables, etc. I will discuss his findings with the patient as well as his family after the procedure. <ELECTRONICALLY SIGNED> By: Dennis Henderson DO 11/20/20 1747 1445 2240Dennis Henderson DO /nt
== END 2020-11-18 12:11 | disposition home or self-care (01) ==
LOC: M.SUR 12:34 → M.ERS 12:34 → M.SUR 14:54 → M.3W 15:40 → M.TBA-ER 15:40 → M.3W 16:40
PROVIDERS: Internal Medicine Gastroenterology; Physician Assistant; ADMIT Internal Medicine; ATTEND Internal Medicine
DX: K56.41 Fecal impaction (principal); Z20.822 Contact with and (suspected) exposure to COVID-19; R10.9 Unspecified abdominal pain; I48.92 Unspecified atrial flutter; Z86.73 Personal history of transient ischemic attack (TIA), and cerebral infarction without residual deficits; K21.9 Gastro-esophageal reflux disease without esophagitis; I45.2 Bifascicular block; Z87.891 Personal history of nicotine dependence; Z79.899 Other long term (current) drug therapy